=== PATIENT | female | born 1930 | race Caucasian/White ===

== ENCOUNTER 2017-11-05 12:32 | Emergency (ER) | payer MEDICARE ==
[~2017-11-05] VITALS: Ht 157.5 cm; Wt 59.0 kg
[~2017-11-05 12:32] MED LIST: ACET325 PO; ALPR.25 PO; ASPI81CH PO; ATOR20 PO; BISA10S PR; BISA5EC PO; Bactrim Ds Tab1 EACH PO; CELE100 PO; CEPH500 PO; CIPR500 PO; CLOP75 PO; DOCU100 PO; ERGO400 PO; FERR325 PO; FURO40 PO; FURO80 PO; GABA100 PO; GAVILAX17 GM PO; HYDACE5 PO; LEVFLO250 PO; LIDO5TP TOP; LISI20 PO; LISI5 PO; LORA.5 PO; METO50 PO; MULVITMIND PO; Micro-K10 MEQ PO; OXYC10ER PO; PANT40 PO; POTCHL10ER PO; Percocet 10-321 EACH PO; Percocet 5-3251 EACH PO; SENN187 PO; SERT100 PO; TRIA80TC TOP; WARF5 PO; ZOSYN IV
[2017-11-05] MEDS ORDERED: LEVFLO500 PO (14:37)
[2017-11-05] MEDS ORDERED: Bactrim Ds Tab1 EACH PO (14:37)
[2017-11-05 15:03] LABS: BASOPHILS ABSOLUTE AUTO 0.03 K/mm3 (0.00-0.23); BASOPHILS PERCENT AUTO 0 % (0-2); EOSINOPHILS ABSOLUTE AUTO 0.07 K/mm3 (0.00-0.68); EOSINOPHILS PERCENT AUTO 1 % (0-6); Hematocrit 29.8 % (33.0-51.0); Hemoglobin 9.6 g/dL (11.5-16.0); IMMATURE GRAN ABSOLUTE AUTO 0.09 K/mm3 (0.00-0.10); IMMATURE GRAN PERCENT AUTO 1 % (0-1); LYMPHOCYTES PERCENT AUTO 16 % (21-46); MONOCYTES ABSOLUTE AUTO 1.26 K/mm3 (0.16-1.47); MONOCYTES PERCENT AUTO 9 % (4-13); Mean Corpuscular HGB 28.9 pg (26.0-34.0); Mean Corpuscular HGB Conc 32.2 g/dL (31.5-36.5); Mean Corpuscular Volume 90 fL (80-100); Mean Platelet Volume 10.6 fL (9.1-12.4); NEUTROPHILS ABSOLUTE AUTO 10.35 K/mm3 (1.96-9.15); NEUTROPHILS PERCENT AUTO 74 % (41-73); Platelet Count 187 K/mm3 (150-400); RDW Coefficient Variation 14.6 % (11.7-14.2); RDW Standard Deviation 48.3 fL (35.1-46.3); Red Blood Cell Count 3.32 M/mm3 (3.80-5.20)
[2017-11-05 15:24] LABS: Anion Gap 8 mmol/L (6-16); Blood Urea Nitrogen 25 mg/dL (8-24); Bun/Creatinine Ratio 30.3 (12.0-20.0); CO2, Blood 29 mmol/L (21-32); Chloride, Blood 104 mmol/L (98-108); Creatinine, Blood 0.83 mg/dL (0.40-1.00); Glomerular Filtration Rate >60 (60-); Glucose, Blood 118 mg/dL (70-99); Potassium, Blood 4.6 mmol/L (3.5-5.5); Sodium, Blood 141 mmol/L (136-145)
[2017-11-05] MEDS ORDERED: Dazidox10 MG PO (15:56)
[2018-08-18] MEDS ORDERED: POTCHL20ER PO (07:27)
[2018-08-18] MEDS ORDERED: ASPI81CH PO (08:51)
[2018-08-18] MEDS ORDERED: SERT100 PO (08:51)
[2018-08-18] MEDS ORDERED: DOXY100 PO (08:56)
== END 2017-11-05 19:13 | disposition home or self-care (01) ==
LOC: ER 12:32
PROVIDERS: Nurse Practitioner Family
DX: L97.329 Non-pressure chronic ulcer of left ankle with unspecified severity (principal); L97.319 Non-pressure chronic ulcer of right ankle with unspecified severity; L97.529 Non-pressure chronic ulcer of other part of left foot with unspecified severity; L97.519 Non-pressure chronic ulcer of other part of right foot with unspecified severity; Z79.899 Other long term (current) drug therapy; Z79.82 Long term (current) use of aspirin; I10 Essential (primary) hypertension; I25.10 Atherosclerotic heart disease of native coronary artery without angina pectoris; Z87.891 Personal history of nicotine dependence
CPT/HCPCS: 80048; 85025; 87070; 87075; 87077; 87147; 87186; 87205; 99283

== ENCOUNTER → 2017-12-16 | Outpatient (CLI) | payer MEDICARE ==
[~2017-12-16] MED LIST changes: +DOXY100 PO; +Dazidox10 MG PO; +LEVFLO500 PO; +POTCHL20ER PO
== END | disposition home or self-care (01) ==
LOC: LAB 15:16
DX: L03.119 Cellulitis of unspecified part of limb (principal)
CPT/HCPCS: 87070; 87077; 87147; 87186; 87205

== ENCOUNTER 2017-12-19 00:10 | Day surgery (SDC) | payer MEDICARE ==
[~2017-12-19 00:10] MED LIST changes: -DOXY100 PO; -POTCHL20ER PO
[2018-08-18] MEDS ORDERED: POTCHL20ER PO (07:27)
[2018-08-18] MEDS ORDERED: SERT100 PO (08:51)
[2018-08-18] MEDS ORDERED: ASPI81CH PO (08:51)
[2018-08-18] MEDS ORDERED: DOXY100 PO (08:56)
== END 2017-12-19 22:49 | disposition home or self-care (01) ==
LOC: WOUND 00:10
DX: Z48.00 Encounter for change or removal of nonsurgical wound dressing (principal); L97.919 Non-pressure chronic ulcer of unspecified part of right lower leg with unspecified severity; L03.119 Cellulitis of unspecified part of limb
CPT/HCPCS: G0463

== ENCOUNTER 2017-12-25 11:00 | Day surgery (SDC) | payer MEDICARE ==
[2018-08-18] MEDS ORDERED: POTCHL20ER PO (07:27)
[2018-08-18] MEDS ORDERED: ASPI81CH PO (08:51)
[2018-08-18] MEDS ORDERED: SERT100 PO (08:51)
[2018-08-18] MEDS ORDERED: DOXY100 PO (08:56)
== END 2017-12-25 22:36 | disposition home or self-care (01) ==
LOC: WOUND 11:00
DX: Z48.00 Encounter for change or removal of nonsurgical wound dressing (principal); L03.119 Cellulitis of unspecified part of limb
CPT/HCPCS: G0463

== ENCOUNTER 2018-01-15 00:48 | Day surgery (SDC) | payer MEDICARE | END 2018-01-15 22:52 | disposition home or self-care (01) | LOC: WOUND 00:48 | PROC: 2W1RX6Z Compression of Left Lower Leg using Pressure Dressing (ICD-10-PCS; principal; 2018-01-15) | PROC: 2W1QX6Z Compression of Right Lower Leg using Pressure Dressing (ICD-10-PCS; principal; 2018-01-15) | DX: L97.219 Non-pressure chronic ulcer of right calf with unspecified severity (principal); L97.829 Non-pressure chronic ulcer of other part of left lower leg with unspecified severity; A49.02 Methicillin resistant Staphylococcus aureus infection, unspecified site; L03.119 Cellulitis of unspecified part of limb | CPT/HCPCS: G0463 ==

== ENCOUNTER 2018-01-20 11:00 | Day surgery (SDC) | payer MEDICARE | END 2018-01-20 22:44 | disposition home or self-care (01) | LOC: WOUND 11:00 | PROC: 2W1QX6Z Compression of Right Lower Leg using Pressure Dressing (ICD-10-PCS; principal; 2018-01-20) | DX: L97.819 Non-pressure chronic ulcer of other part of right lower leg with unspecified severity (principal); Z86.14 Personal history of Methicillin resistant Staphylococcus aureus infection; L03.119 Cellulitis of unspecified part of limb ==

== ENCOUNTER → 2018-02-06 | Outpatient (CLI) | payer MEDICARE | LOC: LAB SHORT 11:04 → LAB 11:04 | DX: L97.212 Non-pressure chronic ulcer of right calf with fat layer exposed (principal); I73.9 Peripheral vascular disease, unspecified | CPT/HCPCS: 87070; 87075; 87186; 87205 ==

== ENCOUNTER → 2018-03-24 | Outpatient (CLI) | payer MEDICARE ==
[2018-03-24 18:02] LABS: BASOPHILS ABSOLUTE AUTO 0.06 K/mm3 (0.00-0.23); BASOPHILS PERCENT AUTO 1 % (0-2); EOSINOPHILS ABSOLUTE AUTO 0.75 K/mm3 (0.00-0.68); EOSINOPHILS PERCENT AUTO 7 % (0-6); Hematocrit 35.6 % (33.0-51.0); Hemoglobin 11.6 g/dL (11.5-16.0); IMMATURE GRAN ABSOLUTE AUTO 0.05 K/mm3 (0.00-0.10); IMMATURE GRAN PERCENT AUTO 1 % (0-1); LYMPHOCYTES ABSOLUTE AUTO 2.11 K/mm3 (0.84-5.20); LYMPHOCYTES PERCENT AUTO 20 % (21-46); MONOCYTES ABSOLUTE AUTO 0.74 K/mm3 (0.16-1.47); MONOCYTES PERCENT AUTO 7 % (4-13); Mean Corpuscular HGB 29.7 pg (26.0-34.0); Mean Corpuscular HGB Conc 32.6 g/dL (31.5-36.5); Mean Corpuscular Volume 91 fL (80-100); Mean Platelet Volume 9.5 fL (9.1-12.4); NEUTROPHILS ABSOLUTE AUTO 6.82 K/mm3 (1.96-9.15); NEUTROPHILS PERCENT AUTO 65 % (41-73); Platelet Count 204 K/mm3 (150-400); RDW Coefficient Variation 14.1 % (11.7-14.2); Red Blood Cell Count 3.91 M/mm3 (3.80-5.20); White Blood Cell Count 10.53 K/mm3 (4.00-11.30)
[2018-03-24 18:18] LABS: Albumin, Blood 3.4 g/dL (3.4-5.0); Albumin/Globulin Ratio 0.8 (0.8-1.8); Bilirubin, Total 0.3 mg/dL (0.1-1.0); Bun/Creatinine Ratio 27.6 (12.0-20.0); Calcium, Blood 8.9 mg/dL (8.5-10.1); Creatinine, Blood 0.94 mg/dL (0.40-1.00); Globulin, Blood 4.3 g/dL (2.2-4.0); Total Protein, Blood 7.7 g/dL (6.4-8.2)
== END ==
LOC: LAB SHORT 17:52 → LAB 17:52
DX: L97.212 Non-pressure chronic ulcer of right calf with fat layer exposed (principal); I87.2 Venous insufficiency (chronic) (peripheral); J44.9 Chronic obstructive pulmonary disease, unspecified; I73.9 Peripheral vascular disease, unspecified
CPT/HCPCS: 80053; 85025; 85651; 87070; 87205

== ENCOUNTER 2018-10-06 00:09 | Day surgery (SDC) | payer MEDICARE ==
[~2018-10-06 00:09] MED LIST changes: +DOXY100 PO; +POTCHL20ER PO
== END 2018-10-06 22:39 | disposition home or self-care (01) ==
LOC: WOUND 00:09
DX: L97.212 Non-pressure chronic ulcer of right calf with fat layer exposed (principal); I70.232 Atherosclerosis of native arteries of right leg with ulceration of calf; I87.2 Venous insufficiency (chronic) (peripheral); L97.512 Non-pressure chronic ulcer of other part of right foot with fat layer exposed
CPT/HCPCS: 87070; 87075; 87077; 87186; 87205; G0463

== ENCOUNTER → 2018-11-30 | Outpatient (CLI) | payer MEDICARE ==
[~2018-11-30] MED LIST changes: +**INCOMPLETE MED REC; +Aspirin EC81 MG PO; +Oxycodone-Apap1 EAC3 PO; +SERT25 PO
== END | disposition home or self-care (01) ==
LOC: LAB 11:45 → LAB SHORT 11:45
DX: I87.2 Venous insufficiency (chronic) (peripheral) (principal); I73.9 Peripheral vascular disease, unspecified; L97.511 Non-pressure chronic ulcer of other part of right foot limited to breakdown of skin; L97.212 Non-pressure chronic ulcer of right calf with fat layer exposed; B95.61 Methicillin susceptible Staphylococcus aureus infection as the cause of diseases classified elsewhere
CPT/HCPCS: 87070; 87077; 87147; 87186; 87205

== ENCOUNTER 2018-12-01 12:10 | Inpatient (IN) | payer MEDICARE ==
[~2018-12-01] VITALS: Ht 157.5 cm; Wt 66.1 kg
[~2018-12-01 12:10] MED LIST changes: -**INCOMPLETE MED REC; -ATOR20 PO; -Aspirin EC81 MG PO; -CLOP75 PO; -FURO40 PO; -GABA100 PO; -METO50 PO; -Oxycodone-Apap1 EAC3 PO; -POTCHL20ER PO; -SERT25 PO
[2018-12-01 13:21] LABS: BASOPHILS ABSOLUTE AUTO 0.06 K/mm3 (0.00-0.23); BASOPHILS PERCENT AUTO 0 % (0-2); EOSINOPHILS ABSOLUTE AUTO 0.15 K/mm3 (0.00-0.68); EOSINOPHILS PERCENT AUTO 1 % (0-6); Hematocrit 34.7 % (33.0-51.0); IMMATURE GRAN ABSOLUTE AUTO 0.06 K/mm3 (0.00-0.10); IMMATURE GRAN PERCENT AUTO 0 % (0-1); LYMPHOCYTES ABSOLUTE AUTO 1.94 K/mm3 (0.84-5.20); LYMPHOCYTES PERCENT AUTO 13 % (21-46); MONOCYTES ABSOLUTE AUTO 1.01 K/mm3 (0.16-1.47); MONOCYTES PERCENT AUTO 7 % (4-13); Mean Corpuscular HGB 28.3 pg (26.0-34.0); Mean Corpuscular HGB Conc 31.7 g/dL (31.5-36.5); Mean Corpuscular Volume 89 fL (80-100); Mean Platelet Volume 9.7 fL (9.1-12.4); NEUTROPHILS ABSOLUTE AUTO 11.44 K/mm3 (1.96-9.15); NEUTROPHILS PERCENT AUTO 78 % (41-73); Platelet Count 242 K/mm3 (150-400); RDW Coefficient Variation 14.4 % (11.7-14.2); RDW Standard Deviation 46.1 fL (35.1-46.3); Red Blood Cell Count 3.89 M/mm3 (3.80-5.20); White Blood Cell Count 14.66 K/mm3 (4.00-11.30)
[2018-12-01 13:35] LABS: Alanine Aminotransfer (ALT/SGP 13 U/L (12-78); Albumin/Globulin Ratio 0.7 (0.8-1.8); Alk Phos 111 U/L (50-136); Anion Gap 7 mmol/L (6-16); Aspartate Aminotrans (AST/SGOT 14 U/L (12-37); Bilirubin, Total 0.4 mg/dL (0.1-1.0); Blood Urea Nitrogen 19 mg/dL (8-24); Bun/Creatinine Ratio 22.7 (12.0-20.0); CO2, Blood 30 mmol/L (21-32); Calcium, Blood 8.9 mg/dL (8.5-10.1); Chloride, Blood 104 mmol/L (98-108); Creatinine, Blood 0.84 mg/dL (0.40-1.00); Globulin, Blood 4.5 g/dL (2.2-4.0); Glomerular Filtration Rate >60 (60-); Glucose, Blood 140 mg/dL (70-99); Potassium, Blood 4.1 mmol/L (3.5-5.5); Sodium, Blood 141 mmol/L (136-145); Total Protein, Blood 7.5 g/dL (6.4-8.2)
[2018-12-01] MEDS ORDERED: **INCOMPLETE MED REC (15:33)
[2018-12-01] MEDS ORDERED: ATOR20 PO (15:40)
[2018-12-01] MEDS ORDERED: Aspirin EC81 MG PO (15:41)
[2018-12-01] MEDS ORDERED: CLOP75 PO (15:42)
[2018-12-01] MEDS ORDERED: FURO40 PO (15:43)
[2018-12-01] MEDS ORDERED: GABA100 PO (15:44)
[2018-12-01] MEDS ORDERED: METO50 PO (15:44)
[2018-12-01] MEDS ORDERED: POTCHL20ER PO (15:46)
[2018-12-01] MEDS ORDERED: Oxycodone-Apap1 EAC3 PO (15:46)
[2018-12-01] MEDS ORDERED: LORA.5 PO (16:04)
[2018-12-01] MEDS ORDERED: SERT25 PO (17:42)
--- NOTE | 2018-12-01 19:31 | NUR ---
SHIFT SUMMARY ED ADMIT THIS AFTERNOON. PATIENT DENIED NAUSEA OR SHORTNESS OF BREATH. REQUESTS PAIN MEDICATION BE GIVEN AT BEDTIME. WOUND CARE GIVEN AND PICTURES IN CHART. REPORT GIVEN TO NICO RN.
--- NOTE | 2018-12-02 05:48 | NUR ---
SHIFT SUMMARY PT PLEASANT AND COOPERATIVE. DRESSINGS TO RLE CLEAN, DRY, AND INTACT. PLACED BY DAY RN JUST BEFORE SHIFT CHANGE. PT PAINFUL IN R LEG, MEDICATED X 1 W/ PERCOCET PER PT REQUEST. PT AMBULATED W/ 1 ASSIST TO BSC. STEADY BUT SLOW AND PAINFUL WITH MOVEMENT. PT HAD NOT VOIDED AT ALL THIS EVENING, BLADDER SCAN READ IN THE 400'S. ENCOURAGED PT UP TO BSC TO VOID. PT VOIDED 400 ML. VSS. PT RESTING IN BED. NO ACUTE CHANGES.
--- NOTE | 2018-12-02 08:02 | NUR ---
pt laying in bed watching tv, a/ox3, pleasant and cooperative with care, follows commands well, lungs are clear t/o, resp even and unlabored, no cough noted, hrr, valve noted, 2+ edema noted to right foot that is wrapped in a dressing for a wound. this dressing was placed yesterday, will not disturb it at this point, iv site is clear and patent, to rac, field start, btx4, abd round soft nontender, voids without diff, skin has wound to right le, and coccyx, dressings in place, jyothi, uses walker to ambulate, but is painful for her, reina, call light in reach.
--- NOTE | 2018-12-02 12:03 | NUR ---
pt had a bedbath, oral care done, linen changes, pt very happy with this, she feels better. no changes this shift. call light in reach.
[2018-12-02 14:21] LABS: Vancomycin, Trough 6.8 ug/mL (5.0-10.0)
--- NOTE | 2018-12-02 15:51 | NUR ---
ASSUMED CARE/PATIENT TRANSFERED TO [facility] ASSUMED CARE OF PATIENT AFTER LUNCH. DR. ALEMAN CONSULTED ON PATIENT. PATIENT TO GO TO [facility] FOR ANGIOGRAM. PATIENT TRANSPORTED TO [facility]. REPORT WILL BE CALLED TO VACUUM APPLICATOR OPERATOR WHEN ROOM ASSIGNMENT IS GIVEN.
--- NOTE | 2018-12-02 17:15 | NUR ---
NURSING SUMMARY RECEIVED PT FROM [facility] WITH LEFT ANGIOGRAM PUNCTURE SITE, WITH TEGADERM IN PLACE, SCANT RED DRAINAGE. PT INSTRUCTED RE: LAYING FLAT FOR ABOUT 1 HOUR OR SO AND WE CAN START SITTING HER UP HIGHER IN BED, PROVIDED NO BLEEDING OR HEMATOMA AT PUNCTURE SITE. INSTRUCTED RE: BEDREST THIS EVENING. PT HAD BALLOONING INTERVENTIONS TO THE RIGHT SFA AND PROXIMAL AT. NSR ON MONITOR, HR 71, VSS. LUNGS CLEAR, 2L O2 NC, SATS 99%. RIGHT LOWER LEG WITH GUAZE AND GINO WRAP DRESSING PLACE. ASSISTED PT ONTO A BEDPAN FOR VOID OF 350 CC CLEAR YELLOW URINE, PLACED AN ATTENDS DUE TO PT STATING SHE IS INCONTINENT AT TIMES. ABDOMEN DISTENDED, DIRM, DENIES DISCOMFORT. DENIES PAIN AT THIS TIME. RIGHT AC IV INFUSING VANCOCIN, STARTED LATE, MEDICATION WAS BROUGHT WITH PT FROM THE HEART CENTER.
--- NOTE | 2018-12-02 19:13 | NUR ---
NURSING SUMMARY LEFT GROIN SITE OOZING BLOOD, HELD PRESSURE FOR 20 MINUTES, PROVIDED BEDSIDE REPORT TO DAPHNE. PT C/O LEFT HIP PAIN WHILE HOLDING PRESSURE AND STARTED C/O RIGHT HIP/ABDOMINAL PAIN, NOTED ABDOMEN DISTENDED, TENDER TO THE TOUCH, NO S/S OF BLEEDING OR HEMATOMA. REPOSITIONED PT TO LEFT SIDE. YAZMIN SERNA, TO ASSUME CARE OF PT.
--- NOTE | 2018-12-02 19:49 | NUR ---
ASSESSMENT ASSUMED CARE OF PT. REPORT RECEIVED FROM UNIQUE AT BEDSIDE. PT AWAKE LYING SUPINE IN BED. LOG ROLLED TO LEFT SIDE TO RELEAVE PRESSURE. PT C/O PAIN TO RIGHT HIP/GROIN AND RLQ ABD /. PT MED WITH PERCOCET. PT THAN C/O NAUSEA, MED WITH ZOFRAN. LUNGS CLEAR BUT DECREASED IN THE BASES. PT ON 2 LITERS O2 VIA NC. RESP EVEN AND NONLABORED. PT DENIES SOB OR COUGH. HEART RATE IRREGULAR BUT SINUS. DENIES CHEST PAIN OR PRESSURE. BT+ ABD TENDER TO RLQ. IV RIGHT AC WITH NS INFUSING SITE CLEAR. ATTENDS CD&I. LEFT GROIN STABLE SOFT TO PALP. LEFT PEDAL PULSES 1+. RIGHT FOOT WITH DRSG INTACT. PT ABLE TO MOVE RIGHT TOES WITHOUT DIFFICULTY. DENIES NUMBNESS OR PAIN TO LOWER EXT. CALL TO DR CEDILLO REGARDING PAIN TO RIGHT HIP/GROIN AND RLQ ABD. REPORT GIVEN. DR CEDILLO THINKS IT IS RELATED TO LAYING ON A HARD FLAT SURFACE FOR A LONG TIME AND NOT RELATED TO THE PROCEDURE. INFORMED PT ABOUT CALL TO DR CEDILLO AND WHAT HE HAD TO SAY.
--- NOTE | 2018-12-02 20:47 | NUR ---
HYPOTENSION CALL TO DR CEDILLO AND HOSPITALIST REGARDING HYPOTENSION AND PELVIC PAIN. PT TO GO FOR STAT CT ABD AND PELVIS. NS BOLUS STARTED
[2018-12-02 21:35] LABS: Hematocrit 28.6 % (33.0-51.0); Hemoglobin 8.8 g/dL (11.5-16.0); Mean Corpuscular HGB 28.1 pg (26.0-34.0); Mean Corpuscular HGB Conc 30.8 g/dL (31.5-36.5); Mean Corpuscular Volume 91 fL (80-100); Mean Platelet Volume 9.5 fL (9.1-12.4); Platelet Count 208 K/mm3 (150-400); RDW Coefficient Variation 14.3 % (11.7-14.2); RDW Standard Deviation 47.6 fL (35.1-46.3); Red Blood Cell Count 3.13 M/mm3 (3.80-5.20); White Blood Cell Count 20.52 K/mm3 (4.00-11.30)
--- NOTE | 2018-12-02 21:36 | NUR ---
CT/ FLUID BOLUS PT TAKEN TO CT VIA BED. BACK FROM CT. 22G IV PLACED TO RIGHT WRIST WITH LAB DRAW. PT LOG ROLLED TO RIGHT. LEFT GROIN STABLE. HOSPITALIST YVONNE DINH REVIEWING CHART.
--- NOTE | 2018-12-02 21:44 | NUR ---
BP 100/50 MAP 75, HEART RATE 71. PT SLEEPING. SPO2 100% ON 2 LITERS O2 VIA NC. TURNED O2 OFF AND PLACED PT ON ROOMAIR. SPO2 97%. RESP EVEN AND NONLABORED.
[2018-12-02 21:50] LABS: Bun/Creatinine Ratio 21.1 (12.0-20.0); Calcium, Blood 7.7 mg/dL (8.5-10.1); Creatinine, Blood 0.99 mg/dL (0.40-1.00); Potassium, Blood 4.4 mmol/L (3.5-5.5)
--- NOTE | 2018-12-02 21:53 | NUR ---
SPO2 SPO2 87% ON ROOMAIR. PT PLACED ON 1 LITER O2, SPO2 UP TO 94-95%
--- NOTE | 2018-12-02 22:19 | NUR ---
CALL TO DR CEDILLO CT REPORT CALLED TO DR CEDILLO. INFORMED DR CEDILLO THAT PT DID RECEIVE ASA AND PLAVIX THIS AM AT 0744. STOPPED ALL BLOOD THINNERS. RECEIVED ORDER FOR 2 UNITS OF PRBC. REPORT GIVEN TO HOSPITALIST YVONNE.
--- NOTE | 2018-12-02 22:49 | NUR ---
JUDIE ALMONTE REPORT GIVEN TO DR MCNEIL REGARDING THE CT AND DR CEDLILO'S ORDERS.
--- NOTE | 2018-12-03 01:37 | NUR ---
HYPOTENSION NOTIFIED DR JASON REGARDING BP 86/36 MAP 48 HEART RATE 61. PT SLEEPING AWAKENS EASILY. A&O ANSWERING QUESTIONS APPROP. FIRST UNIT PRBC INFUSING. CONT TO MONITOR, NOTIFY DR PARRISH IF SBP BELOW 80
--- NOTE | 2018-12-03 03:35 | NUR ---
TRANSFUSION SECOND UNIT OF PRBC STARTED. LUNGS CLEAR ON 1 LITER O2 VIA NC. PT RESTING QUIETLY.
--- NOTE | 2018-12-03 06:20 | NUR ---
SHIFT SUMMARY PT RESTING QUIETLY. LEFT GROIN STABLE. PT TAKEN TO CT LAST NIGHT TO R/O BLEED. PT DEVELOPED HYPOTENSION AND 2 UNITS PRBC WHERE GIVEN. BP IMPROVED WITH BLOOD TRANSFUSION. PT TURNED SIDE TO SIDE TO KEEP OFF BOTTOM. INCONT OF URINE ONCE AND ATTENDS CHANGED. RIGHT FOOT DRSG INTACT. PT MED WITH PERCOCET ONCE FOR PAIN TO RIGHT HIP/GROIN/RLQ ABD WITH GOOD RESULTS. PT REPORTED PAIN OFF AND ON TO RIGHT FOOT DUE TO REPERFUSION. REPORT TO ON COMING NURSE
[2018-12-03 07:14] LABS: Hematocrit 32.3 % (33.0-51.0); Hemoglobin 10.4 g/dL (11.5-16.0); Mean Corpuscular HGB 28.8 pg (26.0-34.0); Mean Corpuscular HGB Conc 32.2 g/dL (31.5-36.5); Mean Corpuscular Volume 90 fL (80-100); Mean Platelet Volume 9.4 fL (9.1-12.4); Platelet Count 181 K/mm3 (150-400); RDW Coefficient Variation 14.6 % (11.7-14.2); RDW Standard Deviation 47.8 fL (35.1-46.3); Red Blood Cell Count 3.61 M/mm3 (3.80-5.20); White Blood Cell Count 14.02 K/mm3 (4.00-11.30)
--- NOTE | 2018-12-03 07:20 | NUR ---
RECEIVED REPORT FROM YAZMIN SERNA, AND ASSUMED CARE OF PT.
[2018-12-03 07:27] LABS: Bun/Creatinine Ratio 21.5 (12.0-20.0); Creatinine, Blood 1.07 mg/dL (0.40-1.00); Potassium, Blood 4.2 mmol/L (3.5-5.5)
--- NOTE | 2018-12-03 07:50 | NUR ---
DR. ROSAS AT BEDSIDE FOR EVALUATION.
--- NOTE | 2018-12-03 08:10 | NUR ---
ULTRASOUND AT BEDSIDE. HELD BREAKFAST.
--- NOTE | 2018-12-03 08:14 | NUR ---
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
--- NOTE | 2018-12-03 09:22 | NUR ---
DR. SIMMS AT BEDSIDE FOR EVALUATION.
--- NOTE | 2018-12-03 09:35 | NUR ---
DR. SIMMS AT BEDSIDE, REMOVED RIGHT LOWER LEG DRESSING TO ASSESS WOUNDS. WOUND ON TOP OF RIGHT FOOT AND RIGHT CALF, CLEAN, NO BLEEDING. WOUNDS APPEAR THE SAME THE PICTURES PREVIOUSLY TAKEN ON ADMISSION. CLEANED WOUNDS WITH WOUND WASH, APPLIED GUAZE ON WOUNDS AND WRAPPED WITH KERLIX AND GINO WRAP. C/O MILD PAIN DURING DRESSING CHANGE, NOT ENOUGH PAIN TO MEDICATE FOR PAIN.
[2018-12-03 12:33] LABS: Hematocrit 31.3 % (33.0-51.0); Hemoglobin 10.4 g/dL (11.5-16.0)
--- NOTE | 2018-12-03 12:37 | NUR ---
CHANGED DRESSING ON LEFT GROIN/ANGIOGRAM SITE. NOTED SMALL AMOUNT OF OLD BLOODY DRAINAGE THAT REMAINED THE SAME SIZE NOTED WITH FIRST ASSESSMENT THIS AM AT 0730. REMOVE DOLD TEGADER/CHG DRESSING, CLEANED SITE, ASSURED NO S/S OF BLEEDING OR HEMATOMA, APPLIED NEW TEGADERM DRESSING.
--- NOTE | 2018-12-03 13:23 | NUR ---
PARESH, PHYSICIAN FOREPART ROUNDER FROM DR. MOYA OFFICE, AT BEDSIDE FOR EVALUATION OF RIGHT LOWER LEG WOUNDS. RECOMMENDS DRESSING CHANGES EVERY OTHER DAY.
--- NOTE | 2018-12-03 15:43 | NUR ---
GAVE REPORT TO YAZMIN ZIMMERMAN, WHOM WILL ASSUME CARE OF PT.
--- NOTE | 2018-12-03 17:21 | NUR ---
SHIFT SUMMARY Assumed care of pt at 1530 from Anna ARCE. Pt on 2 LPM RI. States "I have never needed oxygen before". Pt unhappy about repeated blood draws. This RN educates pt of importance of serial H&H. Pt verbalizes understanding and allows phelbotomist to perform venipuncture. Bed in lowest position. Call light in reach. Will continue to monitor until care handoff and bedside report with oncoming RN.
[2018-12-03 17:29] LABS: Hematocrit 32.1 % (33.0-51.0); Hemoglobin 10.5 g/dL (11.5-16.0)
--- NOTE | 2018-12-03 21:18 | NUR ---
PT A+O, VSS, BP SLIGHTLY HYPOTENSIVE. WITH PAST FEW SHIFT HX OF HYPOTENSION, PT'S METOPROLOL NOT GIVEN. PT INFORMED OF TRANSFER TO ROOM 313. PT VERBALIZED UNHAPPINESS IN BEING MOVED AGAIN. PT SOMEWHAT CONSOLEABLE WITH EXPLANATION. CALLED ROOM 313 RN FOR REPORT WITH RN STATING WILL CALL BACK FOR REPORT WHEN ABLE. AIR LIAISON AND SPECIAL STAFF INFORMED.
--- NOTE | 2018-12-03 21:41 | NUR ---
PT NOW GOING TO ROOM 324. REPORT CALLED TO YULIYA ARCE. ALL QUESTIONS ANSWERED. SEMICONDUCTOR LAB TECHNICIAN NOTIFIED. WILL TRANSFER PT WHEN ABLE.
--- NOTE | 2018-12-03 21:58 | NUR ---
RECEIVED REPORT FROM TRY OUT PERSON, LACY. PT ARRIVED TO 324 VIA BED. PT WAS TRANSFERRED TO BED VIA SLIDER SHEET. A/O AND PLEASANT. RESP EVEN ON 1L VIA NC. RLE WRAPPED IN GINO WRAP. DRESSING CHANGED IN ICU. ELEVATED BLE ON PILLOW. PT MADE COMFORTABLE. CALL LIGHT PLACED WITHIN REACH. WILL MONITOR AND PROVIDE CARE T/O SHIFT.
--- NOTE | 2018-12-03 22:53 | NUR ---
PT TRANSFERRED TO MEDICAL FLOOR RM 324. THIS RN AGREES WITH SHIFT ASSESSMENT OF FEDERAL MEDIATOR.
--- NOTE | 2018-12-04 05:10 | NUR ---
NOC SHIFT SUMMARY THIS PT WAS A TRANSFER FROM ICU AFTER HAVING LOW BLOOD PRESSURE POST PROCEEDURE. SHE HAD BEEN STABILIZED AND BROUGHT BACK TO MED FLOOR. VSS. SHE HAS SLEPT THROUGH THIS NIGHT AND APPEARS IN NO ACUTE DISTRESS. WILL CONTINUE TO MONITOR.
[2018-12-04 05:20] LABS: Hematocrit 29.5 % (33.0-51.0); Hemoglobin 9.4 g/dL (11.5-16.0); Mean Corpuscular HGB 28.9 pg (26.0-34.0); Mean Corpuscular HGB Conc 31.9 g/dL (31.5-36.5); Mean Corpuscular Volume 91 fL (80-100); Mean Platelet Volume 9.4 fL (9.1-12.4); Platelet Count 165 K/mm3 (150-400); RDW Coefficient Variation 14.8 % (11.7-14.2); RDW Standard Deviation 49.5 fL (35.1-46.3); Red Blood Cell Count 3.25 M/mm3 (3.80-5.20); White Blood Cell Count 11.81 K/mm3 (4.00-11.30)
[2018-12-04 05:43] LABS: Bun/Creatinine Ratio 25.2 (12.0-20.0); Calcium, Blood 8.5 mg/dL (8.5-10.1); Creatinine, Blood 0.95 mg/dL (0.40-1.00); Potassium, Blood 4.2 mmol/L (3.5-5.5)
--- NOTE | 2018-12-04 09:44 | NUR ---
CALLED CARDIOLOGY OFFICE TO GET IN TOUCH WITH DR ALEMAN, HE DOES NOT WORK ON [place]. WAS GIVEN HIS PHONE NUMBER, PASSED THIS ON TO DR ROSAS. TRYING TO DC PT NEEDS ALL CLEAR FROM CARDIOLOGY.
[2018-12-04] MEDS ORDERED: DOXY100 PO (10:33)
--- NOTE | 2018-12-04 10:58 | NUR ---
DISCHARGE NOTE- PT DISCHARGING HOME. DISCHARGE PLANNING OFFERED TO SET UP FOLLOW UP APPOINTMENTS AT THE TIME OF DISCHARGE PT STATED NO HER CAREGIVER WILL DO ALL OF THAT. PT HAS NO C/O PAIN AT THIS TIME, TELE AND IV DC'D AND SENIOR BILLING CONSULTANT IS ASSISTING THE PT WITH DRESSING. CAREGIVER IS ENROUTE TO GOLD PLATER THE PT. PT WAS GIVEN VERBAL AND WRITTEN DISCHARGE INSTRUCTIONS AND ACKNOWLEDGED UNDERSTANDING OF THEM. PT WILL BE ESCORTED OUT VIA W/C BY STAFF WHEN CAREGIVER ARRIVES.
== END 2018-12-04 12:16 | disposition home or self-care (01) | DRG 853 ==
LOC: ER 12:10 → MEDS 12:11 → ER 15:52 → MEDS 16:42 → ICUW 12-02 17:22 → MEDS 12-03 10:16 → ICUW 12-03 13:42 → MEDS 12-03 21:58 → ENPENDDIS 12-04 10:00 → MEDS 12-04 12:16
PROVIDERS: Emergency Medicine; Nurse Practitioner Acute Care; ADMIT Internal Medicine
PROC: 30233N1 Transfusion of Nonautologous Red Blood Cells into Peripheral Vein, Percutaneous Approach (ICD-10-PCS; principal; 2018-12-03)
PROC: 047K3ZZ Dilation of Right Femoral Artery, Percutaneous Approach (ICD-10-PCS; 2018-12-03)
PROC: 047P3ZZ Dilation of Right Anterior Tibial Artery, Percutaneous Approach (ICD-10-PCS; 2018-12-03)
DX: A41.9 Sepsis, unspecified organism (principal); K66.1 Hemoperitoneum; L03.115 Cellulitis of right lower limb; L76.32 Postprocedural hematoma of skin and subcutaneous tissue following other procedure; Z79.01 Long term (current) use of anticoagulants; E78.5 Hyperlipidemia, unspecified; Z95.1 Presence of aortocoronary bypass graft; I25.10 Atherosclerotic heart disease of native coronary artery without angina pectoris; I35.0 Nonrheumatic aortic (valve) stenosis; I11.0 Hypertensive heart disease with heart failure; I50.9 Heart failure, unspecified; I73.9 Peripheral vascular disease, unspecified; M79.7 Fibromyalgia; S81.801A Unspecified open wound, right lower leg, initial encounter; Z86.14 Personal history of Methicillin resistant Staphylococcus aureus infection; Z95.2 Presence of prosthetic heart valve; M79.81 Nontraumatic hematoma of soft tissue; K80.50 Calculus of bile duct without cholangitis or cholecystitis without obstruction; I95.9 Hypotension, unspecified; Z87.891 Personal history of nicotine dependence
CPT/HCPCS: 36415; 36430; 37224; 37228; 37232; 71045; 73630; 74176; 75625; 75716; 75774; 76705; 80048; 80053; 80202; 83605; 85014; 85018; 85025; 85027; 85651; 86140; 86850; 86900; 86901; 86923; 87040; 96365; 96366; 99152; 99153; 99284-25; C1725; C1760; C1769; C1887; C1894; C2623; G0378; J0690; J1644; J1650; J2250; J2405; J3010; J3370; J7030; J7050; P9016; Q9967

== ENCOUNTER → 2019-01-01 | Outpatient (CLI) | payer MEDICARE ==
[~2019-01-01] MED LIST changes: +**INCOMPLETE MED REC; +ATOR20 PO; +Aspirin EC81 MG PO; +CLOP75 PO; +FURO40 PO; +GABA100 PO; +METO50 PO; +Oxycodone-Apap1 EAC3 PO; +POTCHL20ER PO; +SERT25 PO
[2019-01-01 13:49] LABS: Alanine Aminotransfer (ALT/SGP 15 U/L (12-78); Albumin, Blood 3.3 g/dL (3.4-5.0); Albumin/Globulin Ratio 0.7 (0.8-1.8); Alk Phos 117 U/L (50-136); Anion Gap 9 mmol/L (6-16); Aspartate Aminotrans (AST/SGOT 17 U/L (12-37); Bilirubin, Total 0.6 mg/dL (0.1-1.0); Blood Urea Nitrogen 17 mg/dL (8-24); Bun/Creatinine Ratio 23.8 (12.0-20.0); CO2, Blood 29 mmol/L (21-32); Calcium, Blood 9.4 mg/dL (8.5-10.1); Chloride, Blood 102 mmol/L (98-108); Creatinine, Blood 0.71 mg/dL (0.40-1.00); Globulin, Blood 4.8 g/dL (2.2-4.0); Glomerular Filtration Rate >60 (60-); Glucose, Blood 119 mg/dL (70-99); Potassium, Blood 4.5 mmol/L (3.5-5.5); Sodium, Blood 140 mmol/L (136-145); Total Protein, Blood 8.1 g/dL (6.4-8.2)
== END | disposition home or self-care (01) ==
LOC: LAB 13:03 → LAB SHORT 13:03
DX: E78.2 Mixed hyperlipidemia (principal); D64.9 Anemia, unspecified; I73.9 Peripheral vascular disease, unspecified
CPT/HCPCS: 80053

== ENCOUNTER → 2019-01-08 | Outpatient (CLI) | payer MEDICARE ==
[2019-01-08 12:30] LABS: BASOPHILS ABSOLUTE AUTO 0.06 K/mm3 (0.00-0.23); BASOPHILS PERCENT AUTO 1 % (0-2); EOSINOPHILS ABSOLUTE AUTO 0.73 K/mm3 (0.00-0.68); EOSINOPHILS PERCENT AUTO 6 % (0-6); Hematocrit 36.7 % (33.0-51.0); Hemoglobin 11.6 g/dL (11.5-16.0); IMMATURE GRAN ABSOLUTE AUTO 0.04 K/mm3 (0.00-0.10); IMMATURE GRAN PERCENT AUTO 0 % (0-1); LYMPHOCYTES PERCENT AUTO 20 % (21-46); MONOCYTES ABSOLUTE AUTO 0.76 K/mm3 (0.16-1.47); MONOCYTES PERCENT AUTO 6 % (4-13); Mean Corpuscular HGB 29.1 pg (26.0-34.0); Mean Corpuscular HGB Conc 31.6 g/dL (31.5-36.5); Mean Corpuscular Volume 92 fL (80-100); Mean Platelet Volume 9.7 fL (9.1-12.4); NEUTROPHILS ABSOLUTE AUTO 7.99 K/mm3 (1.96-9.15); NEUTROPHILS PERCENT AUTO 67 % (41-73); Platelet Count 232 K/mm3 (150-400); RDW Coefficient Variation 14.6 % (11.7-14.2); RDW Standard Deviation 49.8 fL (35.1-46.3); Red Blood Cell Count 3.99 M/mm3 (3.80-5.20); White Blood Cell Count 11.98 K/mm3 (4.00-11.30)
== END | disposition home or self-care (01) ==
LOC: LAB 12:13 → LAB SHORT 12:13
DX: E78.2 Mixed hyperlipidemia (principal); D64.9 Anemia, unspecified; I73.9 Peripheral vascular disease, unspecified
CPT/HCPCS: 85025; 85651

== ENCOUNTER → 2019-02-08 | Outpatient (CLI) | payer MEDICARE ==
[2019-02-08 15:04] LABS: International Normalized Ratio 0.94
== END | disposition home or self-care (01) ==
LOC: LAB 14:29 → LAB SHORT 14:29
PROVIDERS: Radiology Diagnostic Radiology
DX: I83.10 Varicose veins of unspecified lower extremity with inflammation (principal)
CPT/HCPCS: 85610

== ENCOUNTER 2019-02-09 06:58 | Day surgery (SDC) | payer MEDICARE ==
[~2019-02-09] VITALS: Ht 160 cm; Wt 140.0 kg
--- NOTE | 2019-02-09 09:10 | NUR ---
R LEG TLEFA PAD OVER ULCER, CURLEX WRAPPED UP LEG THEN WRAPPED WITH COBAN. DR. ALEMAN STATED NO NEED FOR STOCKING.
--- NOTE | 2019-02-09 09:58 | NUR ---
DISCHARGE PT REMAINED A&OX3 FOLLOWING PROCEDURE. PT DENIED ANY PAIN DURING RECOVERY. R LEG SITE REMAINS CDI-COVERED WITH TELPHA, CURLEX AND COBAN. IV DC'D WITH TIP IN TACT. DICHARGE PAPERWORK GONE OVER WITH PT AND CAREGIVER. PT AND CAREGIVER DEINED ANY QUESTIONS OR CONCERNS. PT WHEELED OUT BY CAREGIVER.
== END 2019-02-09 10:00 | disposition home or self-care (01) ==
LOC: MHTC 06:58
DX: I83.10 Varicose veins of unspecified lower extremity with inflammation (principal); I10 Essential (primary) hypertension; M79.7 Fibromyalgia; E78.5 Hyperlipidemia, unspecified; I73.9 Peripheral vascular disease, unspecified; Z88.1 Allergy status to other antibiotic agents; Z79.82 Long term (current) use of aspirin; Z79.899 Other long term (current) drug therapy; Z79.02 Long term (current) use of antithrombotics/antiplatelets
CPT/HCPCS: 36466; 36475; 99152; 99153; C1888; C1894; J1644; J2250; J3010; J7040

== ENCOUNTER → 2019-02-25 | Outpatient (CLI) | payer MEDICARE | END | disposition home or self-care (01) | LOC: LAB SHORT 13:30 → LAB 13:30 | DX: S91.309D Unspecified open wound, unspecified foot, subsequent encounter (principal) | CPT/HCPCS: 87070; 87075; 87077; 87147; 87186; 87205 ==

== ENCOUNTER → 2019-03-23 | Outpatient (CLI) | payer MEDICARE ==
[2019-03-23 13:28] LABS: BASOPHILS ABSOLUTE AUTO 0.04 K/mm3 (0.00-0.23); BASOPHILS PERCENT AUTO 0 % (0-2); EOSINOPHILS ABSOLUTE AUTO 0.45 K/mm3 (0.00-0.68); EOSINOPHILS PERCENT AUTO 4 % (0-6); Hematocrit 33.8 % (33.0-51.0); Hemoglobin 10.8 g/dL (11.5-16.0); IMMATURE GRAN ABSOLUTE AUTO 0.04 K/mm3 (0.00-0.10); IMMATURE GRAN PERCENT AUTO 0 % (0-1); LYMPHOCYTES ABSOLUTE AUTO 2.12 K/mm3 (0.84-5.20); LYMPHOCYTES PERCENT AUTO 17 % (21-46); MONOCYTES ABSOLUTE AUTO 0.83 K/mm3 (0.16-1.47); MONOCYTES PERCENT AUTO 7 % (4-13); Mean Corpuscular HGB 28.9 pg (26.0-34.0); Mean Corpuscular Volume 90 fL (80-100); Mean Platelet Volume 10.1 fL (9.1-12.4); NEUTROPHILS ABSOLUTE AUTO 9.18 K/mm3 (1.96-9.15); NEUTROPHILS PERCENT AUTO 73 % (41-73); Platelet Count 202 K/mm3 (150-400); RDW Coefficient Variation 14.6 % (11.7-14.2); RDW Standard Deviation 48.5 fL (35.1-46.3); Red Blood Cell Count 3.74 M/mm3 (3.80-5.20); White Blood Cell Count 12.66 K/mm3 (4.00-11.30)
[2019-03-23 13:42] LABS: International Normalized Ratio 0.95; Prothrombin Time Results 10.1 Sec (9.7-11.5)
[2019-03-23 13:49] LABS: Anion Gap 8 mmol/L (6-16); Blood Urea Nitrogen 22 mg/dL (8-24); Bun/Creatinine Ratio 27.7 (12.0-20.0); CO2, Blood 28 mmol/L (21-32); Chloride, Blood 103 mmol/L (98-108); Creatinine, Blood 0.79 mg/dL (0.40-1.00); Glomerular Filtration Rate >60 (60-); Glucose, Blood 126 mg/dL (70-99); Potassium, Blood 4.1 mmol/L (3.5-5.5); Sodium, Blood 139 mmol/L (136-145)
== END | disposition home or self-care (01) ==
LOC: LAB 13:18 → LAB SHORT 13:18
PROVIDERS: Radiology Diagnostic Radiology
DX: D64.9 Anemia, unspecified (principal); I73.9 Peripheral vascular disease, unspecified
CPT/HCPCS: 80048; 85025; 85610

== ENCOUNTER 2019-03-24 06:54 | Day surgery (SDC) | payer MEDICARE ==
[~2019-03-24] VITALS: Ht 160 cm; Wt 66.0 kg
--- NOTE | 2019-03-24 11:52 | NUR ---
LATE ENTRY: 0745 Pt arrived with right foot in dressing yellow sanguinous fluid on drg. Removed slightly prior to entry level lab technician. Yellow flaky skin with seeping yellow fluid noted. Pt postive for MRSA.
--- NOTE | 2019-03-24 12:12 | NUR ---
ASSUMED CARE AT THIS TIME PT. RESTING QUIETLY IN BED, REMAINS DROWSY POST PROCEDURE, OPENS EYES TO VERBAL STIMULI. VSS UPON ARRIVAL. ANTEGRADE SHEATH REMOVED PRIOR TO ARRIVAL BY HEART CENTER STAFF. GROIN SITE STABLE UPON ARRIVAL JUWAN DRESSING IN PLACE WITH SMALL AMOUNT DRAINAGE OUTLINED BY HEART CENTER STAFF. SITE SOFT AND NO HEMATOMA NOTED AT THIS TIME. PT. CAREGIVER AT BEDSIDE. UPDATED ON CONDITION. PT REMAINS IN SUPINE POSITION. PT. HAS WOUND TO RIGHT FOOT, THAT WAS COVERED BY HEART CENTER STAFF DURING PROCEDURE. WILL CLEAN AND RE BANDAGE. NADN AT THIS TIME. CALL LIGHT IN REACH. ATTENDS IN PLACE, CDI.
--- NOTE | 2019-03-24 13:11 | NUR ---
WOUND CARE COMPLETED NEW DRESSINGS PLACED TO RIGHT FOOT AND CALF BUTTOCKS DRESSINGS CLEAN AND INTACT TO WOUNDS, MEPILEX PLACED TO COCCYX, ECCHYMOSIS NOTED TO BUTTOCKS. PER PT. CAREGIVER WOUNDS UNCHANGED. HAZEL CARE DONE AND NEW ATTENDS IN PLACE.
--- NOTE | 2019-03-24 15:17 | NUR ---
CALL TO DR. ALEMAN FOR MEDICATION ORDERS. PT. EATING FINGER FOODS AND PROVIDED WITH BEVERAGES PER REQUEST.
--- NOTE | 2019-03-24 18:06 | NUR ---
SHIFT SUMMARY PT. ALERT AND ORIENTED. PT. CURRENTLY ON RA. REMAINS EXTENDED RECOVERY WITH PLANS TO D/C HOME IN THE AM. PT. VSS T/O SHIFT. ACCESS SITE TO RIGHT GROIN REMAINS UNCHANGED. PT. MED ONCE FOR PAIN TO RIGHT LEG. DRESSINGS CHANGED TO LEG, FOOT AND BUTTOCKS THIS SHIFT. CALL LIGHT IN REACH.
--- NOTE | 2019-03-24 20:31 | NUR ---
START OF SHIFT: REPORT FROM SARA ARCE. PT A+O PLEASANT WITH NO C/O EXCEPT NEEDING HER HEELS ELEVATED. PT'S RIGHT GROIN SITE ASSESSED AND IS WITH NO NEW CHANGES PER SARA ARCE. DRESSING INTACT WITH SLIGHT OLD DRAINAGE AND NO SWELLING OR BRUISING NOTED AT GROIN SITE. PT'S RIGHT FOOT WITH DRESSING CDI AND CAP REFILL <2. PT USING CALL LIGHT AND BED CONTROL APPROPRIATELY. WILL CONTINUE TO MONITOR AND PROVIDE CARE AND COMFORT PRN.
--- NOTE | 2019-03-24 22:41 | NUR ---
PT REPOSITIONED, ATTENDS CHANGED, DENTURES PLACED IN CUP, PT GIVEN FRESH ICE WATER, VSS. CALL LIGHT IN HAND.
--- NOTE | 2019-03-25 02:05 | NUR ---
SATS 89%: PT SPOT CHECKED AND VITALS TAKEN. PT AT START OF SHIFT REFUSED TO WEAR OXYMETER. PT SLEEPING WITH SATS 89%. PT REFUSED TO WEAR N/C STATING, "EVERY TIME I COME HERE THEY TRY TO GET ME TO WEAR THAT AND THEN I GO HOME". PT STATED, "NO" TO WEARING OXYGEN (N/C). OTHERWISE, SKIN PWD.
--- NOTE | 2019-03-25 07:30 | NUR ---
ASSUMED CARE PT. ALERT AND ORIENTED THIS AM. PT ANXIOUS TO GET HOME TODAY. AWAITING HEDDLER TIER. REPORTS PAIN TO RIGHT FOOT AND MED FOR PAIN PER DRLesley ORDER. RIGHT GROIN SITE REMAINS STABLE, AND UNCHANGED. VSS THIS AM.CALL LIGHT IN REACH
--- NOTE | 2019-03-25 09:26 | NUR ---
DR. ALEMAN IN TO SEE PT. PT TO BE DISCHARGED HOME
--- NOTE | 2019-03-25 11:36 | NUR ---
PT DISCHARGED AT THIS TIME. PT ABLE TO STAND AND TRANSFER TO WHEEL CHAIR WITH WALKER. DISCHARGE INSTRUCTIONS REVIEWED WITH PT AND POLICY ADVISOR. PT CAREGIVER TO TAKE PT HOME. ASSISTED OUT TO CAR BY REAL ESTATE LISTING CONSULTANT. PT. VSS UPON DISCHARGE.
== END 2019-03-25 11:35 | disposition home or self-care (01) ==
LOC: MHTC 06:54 → ICUE 11:26 → MHTC 03-25 11:35
DX: I70.239 Atherosclerosis of native arteries of right leg with ulceration of unspecified site (principal); L97.919 Non-pressure chronic ulcer of unspecified part of right lower leg with unspecified severity; Z79.82 Long term (current) use of aspirin; Z79.899 Other long term (current) drug therapy
CPT/HCPCS: 85347; 99152; 99153; C1725; C1769; C1887; C1894; J1644; J2250; J3010; J7030; Q9967

== ENCOUNTER 2019-04-21 12:58 | Inpatient (IN) | payer MEDICARE ==
[~2019-04-21] VITALS: Ht 160 cm; Wt 59.7 kg
[~2019-04-21 12:58] MED LIST changes: -Oxycodone-Apap1 EAC3 PO; -SERT25 PO
[2019-04-21 13:49] LABS: BASOPHILS ABSOLUTE AUTO 0.02 K/mm3 (0.00-0.23); BASOPHILS PERCENT AUTO 0 % (0-2); EOSINOPHILS PERCENT AUTO 0 % (0-6); Hematocrit 32.3 % (33.0-51.0); Hemoglobin 10.3 g/dL (11.5-16.0); IMMATURE GRAN ABSOLUTE AUTO 0.08 K/mm3 (0.00-0.10); IMMATURE GRAN PERCENT AUTO 0 % (0-1); LYMPHOCYTES ABSOLUTE AUTO 1.04 K/mm3 (0.84-5.20); LYMPHOCYTES PERCENT AUTO 6 % (21-46); MONOCYTES PERCENT AUTO 6 % (4-13); Mean Corpuscular HGB 28.7 pg (26.0-34.0); Mean Corpuscular HGB Conc 31.9 g/dL (31.5-36.5); Mean Corpuscular Volume 90 fL (80-100); Mean Platelet Volume 9.9 fL (9.1-12.4); NEUTROPHILS ABSOLUTE AUTO 16.53 K/mm3 (1.96-9.15); NEUTROPHILS PERCENT AUTO 88 % (41-73); Platelet Count 183 K/mm3 (150-400); RDW Coefficient Variation 14.6 % (11.7-14.2); RDW Standard Deviation 48.5 fL (35.1-46.3); Red Blood Cell Count 3.59 M/mm3 (3.80-5.20); White Blood Cell Count 18.77 K/mm3 (4.00-11.30)
[2019-04-21 14:05] LABS: Alanine Aminotransfer (ALT/SGP 14 U/L (12-78); Albumin, Blood 2.6 g/dL (3.4-5.0); Albumin/Globulin Ratio 0.6 (0.8-1.8); Alk Phos 98 U/L (50-136); Anion Gap 7 mmol/L (6-16); Aspartate Aminotrans (AST/SGOT 16 U/L (12-37); Bilirubin, Total 0.7 mg/dL (0.1-1.0); Blood Urea Nitrogen 25 mg/dL (8-24); Bun/Creatinine Ratio 30.3 (12.0-20.0); CO2, Blood 29 mmol/L (21-32); Calcium, Blood 9.1 mg/dL (8.5-10.1); Chloride, Blood 99 mmol/L (98-108); Creatinine, Blood 0.82 mg/dL (0.40-1.00); Globulin, Blood 4.5 g/dL (2.2-4.0); Glomerular Filtration Rate >60 (60-); Glucose, Blood 156 mg/dL (70-99); Potassium, Blood 3.5 mmol/L (3.5-5.5); Sodium, Blood 135 mmol/L (136-145); Total Protein, Blood 7.1 g/dL (6.4-8.2)
[2019-04-21] MEDS ORDERED: Oxycodone-Apap1 EAC3 PO (14:24)
--- NOTE | 2019-04-21 18:30 | NUR ---
SHIFT SUMMARY- PT NEW ADMIT THIS PM. PT AXO X3. PT DENIES PAIN. DENIES SOB. RESP E/U ON RA. DENIES N/V. BLE ELEVATED ON PILLOWS. PT REPORTS UNABLE TO STAND AT THIS TIME. BEDREST. TURNS Q2H. NO OTHER SIGNIFICANT CHANGES THIS SHIFT.
[2019-04-22 05:54] LABS: Anion Gap 6 mmol/L (6-16); Blood Urea Nitrogen 25 mg/dL (8-24); Bun/Creatinine Ratio 32.1 (12.0-20.0); CO2, Blood 29 mmol/L (21-32); Calcium, Blood 8.8 mg/dL (8.5-10.1); Chloride, Blood 103 mmol/L (98-108); Creatinine, Blood 0.78 mg/dL (0.40-1.00); Glomerular Filtration Rate >60 (60-); Glucose, Blood 103 mg/dL (70-99); Potassium, Blood 3.8 mmol/L (3.5-5.5); Sodium, Blood 138 mmol/L (136-145)
[2019-04-22 06:10] LABS: BASOPHILS ABSOLUTE AUTO 0.05 K/mm3 (0.00-0.23); BASOPHILS PERCENT AUTO 0 % (0-2); EOSINOPHILS ABSOLUTE AUTO 0.24 K/mm3 (0.00-0.68); EOSINOPHILS PERCENT AUTO 1 % (0-6); Hematocrit 31.8 % (33.0-51.0); Hemoglobin 9.9 g/dL (11.5-16.0); IMMATURE GRAN ABSOLUTE AUTO 0.08 K/mm3 (0.00-0.10); IMMATURE GRAN PERCENT AUTO 0 % (0-1); LYMPHOCYTES ABSOLUTE AUTO 1.64 K/mm3 (0.84-5.20); LYMPHOCYTES PERCENT AUTO 9 % (21-46); MONOCYTES ABSOLUTE AUTO 1.26 K/mm3 (0.16-1.47); MONOCYTES PERCENT AUTO 7 % (4-13); Mean Corpuscular HGB 28.6 pg (26.0-34.0); Mean Corpuscular HGB Conc 31.1 g/dL (31.5-36.5); Mean Corpuscular Volume 92 fL (80-100); Mean Platelet Volume 10.3 fL (9.1-12.4); NEUTROPHILS ABSOLUTE AUTO 15.87 K/mm3 (1.96-9.15); NEUTROPHILS PERCENT AUTO 83 % (41-73); Platelet Count 184 K/mm3 (150-400); RDW Coefficient Variation 14.6 % (11.7-14.2); RDW Standard Deviation 49.4 fL (35.1-46.3); Red Blood Cell Count 3.46 M/mm3 (3.80-5.20); White Blood Cell Count 19.14 K/mm3 (4.00-11.30)
--- NOTE | 2019-04-22 06:40 | NUR ---
Rn summary: Patient is alert and oriented. Pt has wounds to top of right foot, posterior right calf and purple discoloration and many small skin tears to buttocks. Please see pictures. Pt has been medicated x1 for pain. Pt has not been able to sleep all night. Pt uses the bedpan, has too much pain to ambulate at this time. Pain increased over the last few days, and she had increased discoloration to both legs which is why she came to the hospital. Pt is mostly blind. She is able to use the call light. Vital signs are stable.
--- NOTE | 2019-04-22 16:18 | NUR ---
D/C INSTRUCTIONS PROVIDED AND EXPLAINED TO PT. PT D/C VIA WHEELCHAIR WITH [facility].
== END 2019-04-22 15:56 | disposition home or self-care (01) | DRG 603 ==
LOC: ER 12:58 → MEDS 15:27
PROVIDERS: Emergency Medicine; Nurse Practitioner Acute Care; ADMIT Internal Medicine
DX: L03.115 Cellulitis of right lower limb (principal); I73.9 Peripheral vascular disease, unspecified; I10 Essential (primary) hypertension; I25.10 Atherosclerotic heart disease of native coronary artery without angina pectoris; M19.90 Unspecified osteoarthritis, unspecified site; M79.7 Fibromyalgia; E78.5 Hyperlipidemia, unspecified; F32.9 Major depressive disorder, single episode, unspecified; Z79.02 Long term (current) use of antithrombotics/antiplatelets; Z79.82 Long term (current) use of aspirin; Z79.899 Other long term (current) drug therapy; Z95.1 Presence of aortocoronary bypass graft; I35.0 Nonrheumatic aortic (valve) stenosis; Z95.3 Presence of xenogenic heart valve; Z86.14 Personal history of Methicillin resistant Staphylococcus aureus infection
CPT/HCPCS: 36415; 80048; 80053; 83605; 85025; 87040; 96365; 96367; 96372-59; 99284-25; J0696; J1650; J3370; J7030; J7050

== ENCOUNTER → 2019-06-04 | Outpatient (CLI) | payer MEDICARE ==
[~2019-06-04] MED LIST changes: +Oxycodone-Apap1 EAC3 PO
[2019-06-04 12:41] LABS: BASOPHILS ABSOLUTE AUTO 0.04 K/mm3 (0.00-0.23); BASOPHILS PERCENT AUTO 0 % (0-2); EOSINOPHILS ABSOLUTE AUTO 0.31 K/mm3 (0.00-0.68); EOSINOPHILS PERCENT AUTO 2 % (0-6); Hematocrit 36.4 % (33.0-51.0); Hemoglobin 11.6 g/dL (11.5-16.0); IMMATURE GRAN ABSOLUTE AUTO 0.06 K/mm3 (0.00-0.10); IMMATURE GRAN PERCENT AUTO 0 % (0-1); LYMPHOCYTES PERCENT AUTO 21 % (21-46); MONOCYTES ABSOLUTE AUTO 1.07 K/mm3 (0.16-1.47); MONOCYTES PERCENT AUTO 7 % (4-13); Mean Corpuscular HGB 27.8 pg (26.0-34.0); Mean Corpuscular HGB Conc 31.9 g/dL (31.5-36.5); Mean Corpuscular Volume 87 fL (80-100); Mean Platelet Volume 10.2 fL (9.1-12.4); NEUTROPHILS ABSOLUTE AUTO 10.26 K/mm3 (1.96-9.15); NEUTROPHILS PERCENT AUTO 69 % (41-73); Platelet Count 234 K/mm3 (150-400); RDW Coefficient Variation 14.8 % (11.7-14.2); RDW Standard Deviation 47.9 fL (35.1-46.3); Red Blood Cell Count 4.18 M/mm3 (3.80-5.20); White Blood Cell Count 14.84 K/mm3 (4.00-11.30)
[2019-06-04 13:19] LABS: Alanine Aminotransfer (ALT/SGP 16 U/L (12-78); Albumin, Blood 3.3 g/dL (3.4-5.0); Albumin/Globulin Ratio 0.8 (0.8-1.8); Alk Phos 125 U/L (50-136); Anion Gap 11 mmol/L (6-16); Aspartate Aminotrans (AST/SGOT 19 U/L (12-37); Bilirubin, Total 0.5 mg/dL (0.1-1.0); Blood Urea Nitrogen 30 mg/dL (8-24); Bun/Creatinine Ratio 37.5 (12.0-20.0); CO2, Blood 27 mmol/L (21-32); Calcium, Blood 9.1 mg/dL (8.5-10.1); Chloride, Blood 103 mmol/L (98-108); Globulin, Blood 4.3 g/dL (2.2-4.0); Glomerular Filtration Rate >60 (60-); Glucose, Blood 94 mg/dL (70-99); Potassium, Blood 3.7 mmol/L (3.5-5.5); Sodium, Blood 141 mmol/L (136-145); Total Protein, Blood 7.6 g/dL (6.4-8.2)
== END | disposition home or self-care (01) ==
LOC: LAB SHORT 12:34 → LAB 12:34
DX: D64.9 Anemia, unspecified (principal)
CPT/HCPCS: 36415; 80053; 85025

== ENCOUNTER → 2019-07-02 | Outpatient (CLI) | payer MEDICARE | END | disposition home or self-care (01) | LOC: LAB 11:30 → LAB SHORT 11:30 | DX: L97.512 Non-pressure chronic ulcer of other part of right foot with fat layer exposed (principal) | CPT/HCPCS: 87070; 87075; 87205 ==

== ENCOUNTER 2019-09-09 10:34 | Emergency (ER) | payer MEDICARE ==
[~2019-09-09] VITALS: Ht 160 cm; Wt 59.0 kg
== END 2019-09-09 14:11 | disposition home or self-care (01) ==
LOC: ER 10:34
DX: S20.211A Contusion of right front wall of thorax, initial encounter (principal); S40.012A Contusion of left shoulder, initial encounter; S10.93XA Contusion of unspecified part of neck, initial encounter; I10 Essential (primary) hypertension; Z87.891 Personal history of nicotine dependence; Z79.899 Other long term (current) drug therapy; Z79.82 Long term (current) use of aspirin; Z79.02 Long term (current) use of antithrombotics/antiplatelets; W18.39XA Other fall on same level, initial encounter
CPT/HCPCS: 71111; 99284-25

== ENCOUNTER → 2019-10-29 | Outpatient (CLI) | payer MEDICARE ==
[2019-10-29 15:01] LABS: BASOPHILS ABSOLUTE AUTO 0.03 K/mm3 (0.00-0.23); BASOPHILS PERCENT AUTO 0 % (0-2); EOSINOPHILS PERCENT AUTO 1 % (0-6); Hematocrit 29.5 % (33.0-51.0); Hemoglobin 9.1 g/dL (11.5-16.0); IMMATURE GRAN ABSOLUTE AUTO 0.07 K/mm3 (0.00-0.10); IMMATURE GRAN PERCENT AUTO 1 % (0-1); LYMPHOCYTES ABSOLUTE AUTO 2.06 K/mm3 (0.84-5.20); LYMPHOCYTES PERCENT AUTO 15 % (21-46); MONOCYTES ABSOLUTE AUTO 0.94 K/mm3 (0.16-1.47); MONOCYTES PERCENT AUTO 7 % (4-13); Mean Corpuscular HGB 26.5 pg (26.0-34.0); Mean Corpuscular HGB Conc 30.8 g/dL (31.5-36.5); Mean Corpuscular Volume 86 fL (80-100); NEUTROPHILS PERCENT AUTO 77 % (41-73); Platelet Count 243 K/mm3 (150-400); RDW Coefficient Variation 15.2 % (11.7-14.2); RDW Standard Deviation 47.9 fL (35.1-46.3); Red Blood Cell Count 3.43 M/mm3 (3.80-5.20)
[2019-10-29 15:21] LABS: Alanine Aminotransfer (ALT/SGP 17 U/L (12-78); Albumin/Globulin Ratio 0.7 (0.8-1.8); Alk Phos 133 U/L (50-136); Anion Gap 4 mmol/L (6-16); Aspartate Aminotrans (AST/SGOT 17 U/L (12-37); Bilirubin, Total 0.4 mg/dL (0.1-1.0); Blood Urea Nitrogen 28 mg/dL (8-24); Bun/Creatinine Ratio 31.3 (12.0-20.0); CO2, Blood 30 mmol/L (21-32); Calcium, Blood 8.8 mg/dL (8.5-10.1); Chloride, Blood 107 mmol/L (98-108); Globulin, Blood 4.3 g/dL (2.2-4.0); Glomerular Filtration Rate >60 (60-); Glucose, Blood 117 mg/dL (70-99); Potassium, Blood 4.3 mmol/L (3.5-5.5); Sodium, Blood 141 mmol/L (136-145); Total Protein, Blood 7.3 g/dL (6.4-8.2)
== END | disposition home or self-care (01) ==
LOC: LAB SHORT 13:30 → LAB 13:30
DX: L97.502 Non-pressure chronic ulcer of other part of unspecified foot with fat layer exposed (principal); I10 Essential (primary) hypertension
CPT/HCPCS: 80053; 85025; 85651

== ENCOUNTER → 2019-11-03 | Outpatient (CLI) | payer MEDICARE ==
[2019-11-03 14:53] LABS: BASOPHILS ABSOLUTE AUTO 0.05 K/mm3 (0.00-0.23); BASOPHILS PERCENT AUTO 0 % (0-2); EOSINOPHILS PERCENT AUTO 3 % (0-6); Hematocrit 32.2 % (33.0-51.0); Hemoglobin 9.7 g/dL (11.5-16.0); IMMATURE GRAN ABSOLUTE AUTO 0.04 K/mm3 (0.00-0.10); IMMATURE GRAN PERCENT AUTO 0 % (0-1); LYMPHOCYTES ABSOLUTE AUTO 2.44 K/mm3 (0.84-5.20); LYMPHOCYTES PERCENT AUTO 19 % (21-46); MONOCYTES PERCENT AUTO 6 % (4-13); Mean Corpuscular HGB 25.4 pg (26.0-34.0); Mean Corpuscular HGB Conc 30.1 g/dL (31.5-36.5); Mean Corpuscular Volume 84 fL (80-100); Mean Platelet Volume 9.7 fL (9.1-12.4); NEUTROPHILS ABSOLUTE AUTO 9.07 K/mm3 (1.96-9.15); NEUTROPHILS PERCENT AUTO 71 % (41-73); Platelet Count 290 K/mm3 (150-400); RDW Coefficient Variation 14.9 % (11.7-14.2); RDW Standard Deviation 45.7 fL (35.1-46.3); Red Blood Cell Count 3.82 M/mm3 (3.80-5.20)
[2019-11-03 15:11] LABS: International Normalized Ratio 0.97; Prothrombin Time Results 10.4 Sec (9.7-11.5)
[2019-11-03 15:30] LABS: Anion Gap 8 mmol/L (6-16); Blood Urea Nitrogen 23 mg/dL (8-24); CO2, Blood 28 mmol/L (21-32); Calcium, Blood 9.3 mg/dL (8.5-10.1); Chloride, Blood 103 mmol/L (98-108); Creatinine, Blood 0.92 mg/dL (0.40-1.00); Glomerular Filtration Rate >60 (60-); Glucose, Blood 122 mg/dL (70-99); Potassium, Blood 3.9 mmol/L (3.5-5.5); Sodium, Blood 139 mmol/L (136-145)
== END | disposition home or self-care (01) ==
LOC: LAB 13:24 → LAB SHORT 13:24
PROVIDERS: Radiology Diagnostic Radiology
DX: E78.2 Mixed hyperlipidemia (principal); I50.9 Heart failure, unspecified; I77.9 Disorder of arteries and arterioles, unspecified
CPT/HCPCS: 80048; 85025; 85610

== ENCOUNTER → 2020-02-28 | Outpatient (CLI) | payer MEDICARE | END | disposition home or self-care (01) | LOC: LAB SHORT 11:00 → LAB 11:00 | DX: L97.512 Non-pressure chronic ulcer of other part of right foot with fat layer exposed (principal) | CPT/HCPCS: 87070; 87205 ==

== ENCOUNTER → 2020-04-10 | Outpatient (CLI) | payer MEDICARE | END | disposition home or self-care (01) | LOC: LAB SHORT 15:12 → LAB 15:12 | DX: L97.212 Non-pressure chronic ulcer of right calf with fat layer exposed (principal) | CPT/HCPCS: 87070; 87075; 87077; 87185; 87186; 87205 ==

== ENCOUNTER 2020-04-27 10:43 | Inpatient (IN) | payer MEDICARE ==
[~2020-04-27] VITALS: Ht 160 cm; Wt 57.0 kg
[2020-04-27 11:20] LABS: BASOPHILS ABSOLUTE AUTO 0.05 K/mm3 (0.00-0.23); BASOPHILS PERCENT AUTO 0 % (0-2); EOSINOPHILS ABSOLUTE AUTO 0.29 K/mm3 (0.00-0.68); EOSINOPHILS PERCENT AUTO 2 % (0-6); Hemoglobin 10.9 g/dL (11.5-16.0); IMMATURE GRAN ABSOLUTE AUTO 0.06 K/mm3 (0.00-0.10); IMMATURE GRAN PERCENT AUTO 1 % (0-1); LYMPHOCYTES ABSOLUTE AUTO 2.61 K/mm3 (0.84-5.20); LYMPHOCYTES PERCENT AUTO 20 % (21-46); MONOCYTES ABSOLUTE AUTO 0.88 K/mm3 (0.16-1.47); MONOCYTES PERCENT AUTO 7 % (4-13); Mean Corpuscular HGB 25.5 pg (26.0-34.0); Mean Corpuscular HGB Conc 30.3 g/dL (31.5-36.5); Mean Corpuscular Volume 84 fL (80-100); Mean Platelet Volume 9.1 fL (9.1-12.4); NEUTROPHILS ABSOLUTE AUTO 9.13 K/mm3 (1.96-9.15); NEUTROPHILS PERCENT AUTO 70 % (41-73); Platelet Count 251 K/mm3 (150-400); RDW Coefficient Variation 17.8 % (11.7-14.2); RDW Standard Deviation 54.5 fL (35.1-46.3); Red Blood Cell Count 4.28 M/mm3 (3.80-5.20); White Blood Cell Count 13.02 K/mm3 (4.00-11.30)
[2020-04-27 11:43] LABS: Alanine Aminotransfer (ALT/SGP 8 U/L (12-78); Albumin, Blood 3.1 g/dL (3.4-5.0); Albumin/Globulin Ratio 0.6 (0.8-1.8); Alk Phos 120 U/L (50-136); Anion Gap 7 mmol/L (6-16); Aspartate Aminotrans (AST/SGOT 13 U/L (12-37); Bilirubin, Total 0.4 mg/dL (0.1-1.0); Blood Urea Nitrogen 19 mg/dL (8-24); Bun/Creatinine Ratio 22.3 (12.0-20.0); CO2, Blood 29 mmol/L (21-32); Chloride, Blood 104 mmol/L (98-108); Creatinine, Blood 0.85 mg/dL (0.40-1.00); Globulin, Blood 4.8 g/dL (2.2-4.0); Glomerular Filtration Rate >60 (60-); Glucose, Blood 114 mg/dL (70-99); Potassium, Blood 3.9 mmol/L (3.5-5.5); Sodium, Blood 140 mmol/L (136-145); Total Protein, Blood 7.9 g/dL (6.4-8.2)
--- NOTE | 2020-04-27 18:29 | NUR ---
PT ADMITTED. PT ADMITTED TO 359. PT IN STABLE CONDITION WITH VSS. FLUIDS STARTED, VANCO RUNNING. DINNER TRAY ORDERED. PT ORIENTED TO ROOM. CALL & PHONE IN REACH. PURSE AT BEDSIDE. WOUND CARE COMPLETED & PICS TAKEN. WILL CONTINUE TO MONITOR UNTIL TURNOVER IS COMPLETE.
--- NOTE | 2020-04-28 03:52 | NUR ---
SHIFT SUMMARY PT ADMITTED ON PREVIOUS SHIFT WITH DM AND PRESSURE SORES OF RIGHT FOOT AND BACK OF RIGHT CALF - SEE CORRESPONDING PICTURES TAKEN IN CHART. DRSSINGS CHANGED ON DAY SHIFT, PT HAS BEEN VOICING PAIN IN AREA AND HAS RECEIVED PERCOCET ABOUT EVERY 4 HRS FOR SAID PAIN - SEE MAR FOR DETAILS. IVF INFUSING ORDERED. ISOLATION PRECAUTIONS FOR MRSA CONTINUE. CALL LIGHT IN REACH
[2020-04-28 04:52] LABS: BASOPHILS ABSOLUTE AUTO 0.04 K/mm3 (0.00-0.23); BASOPHILS PERCENT AUTO 0 % (0-2); EOSINOPHILS ABSOLUTE AUTO 0.36 K/mm3 (0.00-0.68); EOSINOPHILS PERCENT AUTO 4 % (0-6); Hematocrit 28.1 % (33.0-51.0); Hemoglobin 8.4 g/dL (11.5-16.0); IMMATURE GRAN ABSOLUTE AUTO 0.05 K/mm3 (0.00-0.10); IMMATURE GRAN PERCENT AUTO 1 % (0-1); LYMPHOCYTES ABSOLUTE AUTO 1.15 K/mm3 (0.84-5.20); LYMPHOCYTES PERCENT AUTO 11 % (21-46); MONOCYTES ABSOLUTE AUTO 0.76 K/mm3 (0.16-1.47); MONOCYTES PERCENT AUTO 7 % (4-13); Mean Corpuscular HGB 25.4 pg (26.0-34.0); Mean Corpuscular HGB Conc 29.9 g/dL (31.5-36.5); Mean Corpuscular Volume 85 fL (80-100); Mean Platelet Volume 9.3 fL (9.1-12.4); NEUTROPHILS ABSOLUTE AUTO 8.03 K/mm3 (1.96-9.15); NEUTROPHILS PERCENT AUTO 77 % (41-73); Platelet Count 196 K/mm3 (150-400); RDW Coefficient Variation 17.8 % (11.7-14.2); RDW Standard Deviation 55.9 fL (35.1-46.3); Red Blood Cell Count 3.31 M/mm3 (3.80-5.20); White Blood Cell Count 10.39 K/mm3 (4.00-11.30)
[2020-04-28 05:28] LABS: Alanine Aminotransfer (ALT/SGP 7 U/L (12-78); Albumin, Blood 2.2 g/dL (3.4-5.0); Albumin/Globulin Ratio 0.6 (0.8-1.8); Alk Phos 92 U/L (50-136); Anion Gap 5 mmol/L (6-16); Aspartate Aminotrans (AST/SGOT 10 U/L (12-37); Bilirubin, Total 0.3 mg/dL (0.1-1.0); Blood Urea Nitrogen 19 mg/dL (8-24); Bun/Creatinine Ratio 22.1 (12.0-20.0); CO2, Blood 28 mmol/L (21-32); Calcium, Blood 8.2 mg/dL (8.5-10.1); Chloride, Blood 107 mmol/L (98-108); Creatinine, Blood 0.86 mg/dL (0.40-1.00); Globulin, Blood 3.5 g/dL (2.2-4.0); Glomerular Filtration Rate >60 (60-); Glucose, Blood 116 mg/dL (70-99); Potassium, Blood 4.1 mmol/L (3.5-5.5); Sodium, Blood 140 mmol/L (136-145)
[2020-04-28 05:29] LABS: Total Protein, Blood 5.7 g/dL (6.4-8.2)
--- NOTE | 2020-04-28 07:20 | NUR ---
ASSUMED CARE: PT RESTING QUIETLY. NO ACUTE NEEDS OR CONCERNS AT THIS TIME.
--- NOTE | 2020-04-28 11:00 | NUR ---
DR DUVAL AT BEDSIDE. DRESSING REMOVED SO DR CAN SEE WOUND BED. DRESSING REPLACED
--- NOTE | 2020-04-28 17:31 | NUR ---
SHIFT SUMMARY: PT REPOSITIONED Q2, MEDICATED FOR PAIN X2 THIS SHIFT. PLAN IS ABX OVER WEEKEND UNTIL PODIATRY CAN SEE PT NEXT WEEK. DRESSING CHANGED THIS SHIFT. NO FURTHER NEEDS OR CONCERNS AT THIS TIME.
--- NOTE | 2020-04-29 04:31 | NUR ---
SHIFT SUMMARY ADMITTED FOR OSTEOPENIA OF RT FOOT. FULL CODE. SHE HAS ULCERS ON RT LEG AND TOP OF FOOT. ULCER ON COCCYX. SHE IS ONLY CONFUSED WHEN SHE FIRST WAKES UP. SHE IS RECEIVING ANTIBIOTICS OVER THE WEEKEND, PODIATRY CONSULT PERHAPS FRIDAY. SHE RECEIVES HOME HEALTH AT HOME TO HELP WITH HER DRESSING CHANGES. SHE STATES SHE DOES NOT GET UP OUT OF CHAIR OR BED MUCH. CONTACT PRECAUTIONS FOR MRSA IN WOUNDS. PERCOCET IS SCHEDULED Q 4 HRS, SHE STATES SHE TAKES PAIN MEDICATION AT HOME.
[2020-04-29 07:05] LABS: BASOPHILS ABSOLUTE AUTO 0.05 K/mm3 (0.00-0.23); BASOPHILS PERCENT AUTO 1 % (0-2); EOSINOPHILS ABSOLUTE AUTO 0.67 K/mm3 (0.00-0.68); EOSINOPHILS PERCENT AUTO 6 % (0-6); Hematocrit 34.8 % (33.0-51.0); Hemoglobin 10.4 g/dL (11.5-16.0); IMMATURE GRAN ABSOLUTE AUTO 0.05 K/mm3 (0.00-0.10); IMMATURE GRAN PERCENT AUTO 1 % (0-1); LYMPHOCYTES PERCENT AUTO 14 % (21-46); MONOCYTES ABSOLUTE AUTO 0.79 K/mm3 (0.16-1.47); MONOCYTES PERCENT AUTO 8 % (4-13); Mean Corpuscular HGB 25.5 pg (26.0-34.0); Mean Corpuscular HGB Conc 29.9 g/dL (31.5-36.5); Mean Corpuscular Volume 85 fL (80-100); Mean Platelet Volume 9.8 fL (9.1-12.4); NEUTROPHILS ABSOLUTE AUTO 7.54 K/mm3 (1.96-9.15); NEUTROPHILS PERCENT AUTO 71 % (41-73); Platelet Count 236 K/mm3 (150-400); Red Blood Cell Count 4.08 M/mm3 (3.80-5.20)
[2020-04-29 07:15] LABS: Albumin, Blood 2.5 g/dL (3.4-5.0); Anion Gap 4 mmol/L (6-16); Blood Urea Nitrogen 14 mg/dL (8-24); Bun/Creatinine Ratio 14.7 (12.0-20.0); CO2, Blood 31 mmol/L (21-32); Calcium, Blood 8.6 mg/dL (8.5-10.1); Chloride, Blood 104 mmol/L (98-108); Creatinine, Blood 0.95 mg/dL (0.40-1.00); Glomerular Filtration Rate 59 (60-); Glucose, Blood 92 mg/dL (70-99); Phosphorus, Blood 3.3 mg/dL (2.5-4.9); Potassium, Blood 4.2 mmol/L (3.5-5.5); Sodium, Blood 139 mmol/L (136-145)
--- NOTE | 2020-04-29 18:36 | NUR ---
shift summary patient is pleasant, alert and oriented. she denies shortness of breath. she has been changed multiple times today. she notes that she is feeling well but not quite ready to go home. sounds like the patient is expecting to go to rehab post discharge to get stronger. she does have wounds on her r leg and these are chronic.
--- NOTE | 2020-04-30 03:49 | NUR ---
SHIFT SUMMARY: 89 Y/O FEMALE RESTED COMFORTABLY ALL SHIFT; PT C/O RLE PAIN 8/10 WITH PERCOCET 5/325 PO X 1 GIVEN WITH RELIEF FELT; PTS RLE KERLIX WRAP DRY AND INTACT; ALERT AND ORIENTED X 4; PT INCONTINENT URINE WITH ATTENDS DIAPERS CHANGED BY STAFF; BED ALARM APPLIED WITH BED ALARM APPLIED, CALL LIGHT AT SIDE.
--- NOTE | 2020-04-30 10:25 | NUR ---
patient was seen by Dr. Calle this am and he undressed the wounds, cleansed and redressed the wounds today. this has been a dressng change and a consult. he placed a consult for dr. gottlieb which cannot be called until tomorrow as he does not have arrive to the hospital on weekends. will attempt to find a consult line number for chery. patient is comfortable at this time.
--- NOTE | 2020-04-30 16:10 | NUR ---
SHIFT SUMMARY PATIENT IS PLEASANT, ALERT AND ORIENTED. SHE HAS BEEN ONE PERSON ASSIST TO THE BEDSIDE COMMODE AFTER WORKING WITH PHYSICAL THERAPY BUT SHE IS STILL MILDLY INCONTINENT AND HAS BEEN FOR A LONG TIME. THE PATIENT IS COOPERATIVE AND CALLS APPROPRIATELY. WE HAVE KEPT HER PAIN UNDER CONTROL. SHE WAS SEEN BY DR. TREVIZO TODAY AND HAS A CONSULT FOR DR. ALEMAN TOMORROW. THIS HAS ALREADY BEEN CALLED. SHE HAD HER WOUND UNWRAPPED, CLEANSED, AND REWRAPPED BY DR. TREVIZO TODAY DURING HER CONSULT. HE PLACED CALCIUM ALGANATE BETWEEN HER TOES, SHE HAS KERLEX AND AN ABD PAD ALONG HER ULCERATIONS. DR. TREVIZO WOULD LIKE DR. 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 SHE IS IN A MUCH BETTER MOOD THAN SHE WAS YESTERDAY. HER PAIN IS UNDER CONTROL AND SHE FEELS THAT SHE IS MORE UPDATED ON HER SITUATION TODAY THAN SHE HAS BEEN SINCE SHE WAS ADMITTED.
[2020-04-30 17:39] LABS: Vancomycin, Trough 15.7 ug/mL (5.0-10.0)
--- NOTE | 2020-05-01 06:34 | NUR ---
SHIFT SUMMARY AOX4. DENIES N/V OR DYSPNEA. NOTICED SPO2 @88% LAST NIGHT, DENIES USING O2 BEFORE & SPO2 HAS BEEN TRENDING 88-92% ON RA. HAD PT TAKE SOME DEEP BREATHS & SPO2 INCREASED TO 92% ON RA. DENIES ASTHMA OR COPD. REPORTS HAVING OCCASIONAL CONGESTED/PHLEM TYPE COUGH. CRACKLES HEARD IN BASES OF LUNGS. HAS STAGE 1 PRESSURE SORE ON COCCYX, SKIN INTACT & VERY BRUISED, DRESSING CHANGED. DRESSING ON RLE IS C/D/I DURING ASSESSMENT, CAT AND DOG BATHER CHANGED DRESSING YESTERDAY DURING DAY SHIFT. REPORTS 8/10 PAIN IN RLE, MEDICATED 1X W/PERCOCET. CAP REFILL <3, UNABLE TO ASSESS PEDAL PULSE IN RLE. HEEL PROTECTORS APPLIED. CALL LIGHT IN REACH.
--- NOTE | 2020-05-01 17:10 | NUR ---
PATIENT IS ALERT AND ORIENTED. SHE REFUSED PT TODAY BUT PARTICIPATED WITH OT. SHE IS EAGER TO HAVE DR. ALEMAN CONSULT. RLE DRESSING HAS BEEN CHANGED TODAY. SHE GOT UP TO THE CHAIR THIS MORNING FOR BREAKFAST. WILL CONTINUE TO MONITOR
--- NOTE | 2020-05-02 01:47 | NUR ---
SHIFT REVIEW 0130 05/02 PT HAS BEEN PLEASENT AND A/O THE WHOLE SHIFT. INC VOID ONCE WITH AN ATTENDS AND LINEN CHANGE. PT SET UP FOR ORAL CARE. CALLING APPROPRIATELY
--- NOTE | 2020-05-02 07:49 | NUR ---
SHIFT SUMMARY NO ACUTE CHANGES THIS SHIFT. AOX4. VSS, EXCEPT SPO2 @ 88% ON RA INITIALLY, ASKED PT TO TAKE A FEW DEEP BREATHS & SPO2 INCREASED TO 92% ON RA. PT DENIES N/V OR DYSPNEA. REPORTS 7-05/29 PAIN IN RLE, MEDICATED 2X W/PERCOCET. DRESSING ON RLE WOUND IS C/D/I. PT PLANNED TO GO FOR POSSIBLE REVASCULARIZATION LATER THIS AFTERNOON, IS TO BE NPO AFTER BREAKFAST PER YESTERDAY DAY SHIFT RN REPORT. CALL LIGHT IN REACH.
--- NOTE | 2020-05-02 17:06 | NUR ---
SHIFT SUMMARY- PT IS A/O, PLESANT AND COOPERATIVE, SHE IS EATING AND DRINKING WELL. THERE WAS A POSSIBLITY OF HER GOING TO HAVE REVASCULARZATION OF THE LEFT LEG TODAY, BUT THE PROCEDURE WAS POSTPONED UNTIL TOMORROW. SHE WILL BE NPO AFTER MIDNIGNT. SHE IS A SB ASSIST TO THE BEDSIDE CAMMODE. SHE IS VOIDING WELL. MEDICATED FOR PAIN PER MAR
[2020-05-02 18:33] LABS: Creatinine, Blood 0.88 mg/dL (0.40-1.00)
[2020-05-02 18:35] LABS: Vancomycin, Trough 20.1 ug/mL (5.0-10.0)
--- NOTE | 2020-05-03 02:41 | NUR ---
PATIENT VERY AGITATED AT START OF SHIFT SHE THOUGHT SHE WOULD'VE HAD HER PROCEDURE TODAY. PATIENT VERY FRUSTRATED TONIGHT WONDERING ABOUT WHETHER SHE SHOULD HAVE REVASCULARIZATION TOMORROW. VERY CONCRETE IN HER THINKING. SHE STATES SHE HAS ALREADY HAD THE PROCEDURE TWICE ON HER RIGHT LEG. AT AROUND 0200, WHEN THIS RN WENT IN TO CHECK ON HER, PATIENT STATED SHE DIDN'T THINK SHE WANTED TO HAVE THE SURGERY. THEN SHE SAID SHE WANTED WATER TO "SIP ON". i EXPLAINED THAT IF SHE DRANK MORE THAN JUST A SIP, AND CHANGED HER MIND, SHE MAY HAVE TO WAIT UNTIL A LATER DATE TO HAVE THE SURGERY. pATIENT AGREED THAT SHE WOULD TO SPEAK WITH THE SURGEON IN AM. SMALL CUP OF WATER GIVEN TO PATIENT FOR COMFORT. WILL CONTINUE CLOSE MONITORING.
[2020-05-03 05:27] LABS: Vancomycin, Random 16.8 ug/mL
--- NOTE | 2020-05-03 08:35 | NUR ---
PT REFUSING SURG/INTERVENTION TO ME. EXPLAINED IF WOUNDS NOT HEALING, MAY EVENTUALLY BECOME WORSE, POSS GANGRENOUS, COULD POSS LOOSE LEG, EXPLAINED DR GOAL WAS TO REVASCULARIZE AND GET GOOD FLOW TO ASSIST IN HEALING. SHE REFUSING INTERVENTIONS. WANTS TO EAT AND DRINK. EXPLAINED WILL CONTACT DR. CALLED DR CAMPOS. EXPLAINED ABOVE, ALSO THAT SHE PRESENTS MORE CONFUSED OVER LAST FEW DAYS PER HAND MICA PLATE LAYER. SHE TO COME SEE PT.
--- NOTE | 2020-05-03 09:32 | NUR ---
DR CAMPOS STATES SAW PT. CONTINUE WITH REVASC. CALL DR ALEMAN TO ADVISE. FIND OUT WHEN TO DO
--- NOTE | 2020-05-03 13:00 | NUR ---
PAL CARE NOTE/CASE CONFERENCE: Spoke with Steel Turner who had seen pt this am after report of pt very anxious and refusing scheduled intervention to revascularize LE. Steel Turner reports that she was able to calm the pt and that she had agreed to proceed with the procedure. suggested that I wait until tomorrow to attempt visit with pt. She will f/u with pt again later today/santos. Plan to make contact and visit if pt is agreeable tomorrow.
--- NOTE | 2020-05-03 14:06 | NUR ---
Pt. is lying in bed and talking with her nurse pt. reports to be doing well encouraged pt. and offered prayers .
--- NOTE | 2020-05-03 17:56 | NUR ---
PT PLEASANT THIS AFT. CALMED DOWN SINCE THIS AM. WAS READY TO LEAVE. I TALKED TO HER AND DR CAMPOS TALKED TO HER. GOT DR ALEMAN TO SEE HER. PT STATES FEELS BETTER NOW. PT HAS BEEN SEEN AT LEAST TWICE BY SPIRITUAL CARE. DR ALEMAN LOOKED AT FOOT TTHIS AM. STATES NOT BAD EXPECTED. WILL SET PROCEDURE FOR TOMORROW AM. NO NEW CONCERNS AT THIS TIME. BED IN LOW POSITION, CALL LITE IN REACH, CALLS APPROP
--- NOTE | 2020-05-03 18:13 | NUR ---
Per RN request, I visited Patti who was hestitant about her upcoming proceedure. Through affirmation and gentle christian counselor, she agreed to proceed. Prayer and assurance of excellent care was beneficial. We had an easy rapport, and I will continue to follow as case-load permits.
--- NOTE | 2020-05-04 04:26 | NUR ---
SUMMARY PT ONLY COMPLAINT IS R HIP DISCOMFORT. PT TX PER EMAR. PT HAS SLEPT OFF AND ON. PT HAS BEEN CHANGED AND REPOSITIONED. PT HAS BEEN NPO SINCE MIDNIGHT. PT CURRENTLY SLEEPING IN NO DISTRESS. CALL LIGHT IN REACH AND BED ALARM ON.
--- NOTE | 2020-05-04 08:45 | NUR ---
PT PLEASANT COOP A/O THIS AM. HAS ACCEPTED PROCEDURE AND NPO WELL TODAY. H/R REG, NO MURMER NOTED. 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 NO TELE. LUNGS CLEAR, RESP EASY, UNLABORED. ON R.A. BT X4 LAST BM YEST PER PT. VOIDS INCONT. IN ATTENDS. CDI AT THIS TIME. BOTTOM/COCCYX PRESENTS IMPROVED FROM PIC. VERY SMALL OPEN SPOTS NOW. IS COVERED WITH DRY MEPILEX. DID NOT OBSERVE FOOT/CALF WOUND. IS PRESENTLY WRAPPED AND DR TREVIZO IS MANAGING. HUGO IS CDI. PENDING REVASCULARIZATION BY DR ALEMAN THIS AM. PT IS NPO. BED IN LOW POSITION, CALL LITE IN REACH, CALLS APPROP.
--- NOTE | 2020-05-04 15:35 | NUR ---
DAY SURG HERE FOR PT PROCEDURE
--- NOTE | 2020-05-04 16:24 | NUR ---
REP;ORT CALLED TO [facility] FOR ICU TRANSFER FOR RECOVERY FROM REVASCULARIZATION.
--- NOTE | 2020-05-04 17:45 | NUR ---
PT TO ICU 15 FROM [facility]. S/P REVASCULARIZATION OF R LEG. PT IS DROWSY BUT WAKES EASILY AND ANSWERS QUESTIONS APPROPRIATELY. HAS R FEMORAL ACCESS SITE THAT HAS CLEAR OCCLUSIVE DRESSING INTACT. NO SIGN OF HEMATOMA. PT'S R FOOT HAS SEVERE WOUNDS TO TOP OF FOOT. HAS GINO WRAP AND GAUZE DRESSING. SURROUNDING SKIN IS THICK AND SCALING. HAS WOUND TO KIRK WELL. BUTTOCKS IS DEEP PURPLE THAT BLANCHES. WAS ONLY ABLE TO FIND R POPLITEAL PULSE AND R PT PULSE WITH DOPPLER. SKIN IS SO THICK IT IS VERY DIFFICULT TO ASSESS PULSES. ON 4L NC. EDUCATED ABOUT PRECAUTIONS FOR KEEPING LEG STRAIGHT AND HEAD DOWN ON PILLOW.
--- NOTE | 2020-05-04 18:19 | NUR ---
Routine spiritual care note: Provided prayer and visit before proceedure for Patti. She was calm and said she was happy she was having "this" done. Met with her post-op for encouragement. Ethanol Maintenance Mechanic services will remain available.
--- NOTE | 2020-05-04 19:00 | NUR ---
ASSUMED CARE NOTE: ASSUMED CARE OF PT AT 1900, RECEVIED REPORT FROM [facility]. PT IS A/OX3, HOWEVER, IS FORGETFUL AT TIMES. FREQUENTLY ASKED THE SAME QUESTIONS. PT IS ON 2L OF O2 VIA NC, SPO2 AT 95% PT DENIES SOB. PT IN SR WITH PVC'S HR IN THE 50-60'S. ACTIVE BT HEARD IN ALL FOUR QUADRANTS, ATTENDS IN PLACE. PT IS IN SUPINE POSITION POST VASCULAR INTERVENTION. PT C/O 9/10 PAIN TO RIGHT LEG. RLE IS PALE, COOL TO THE TOUCH, WOUND NOTED TO RIGHT FOOT. RLE WOUND DRESSING IN PLACE. POPLITEAL PULSE FOUND WITH DOPPLER, NO PEDAL PULSE COUNLD BE FOUND. RIGHT FEMORAL CATH INSERTION SITE IS FREE FROM HEMATOMA, NO ACTIVE BLEEDING NOTED, DRESSING IS C/D/I. BED AT LOWEST LEVEL, CALL LIGHT WITHIN REACH. WILL CONTINUE TO MONITOR PT T/O SHIFT.
[2020-05-04 20:11] LABS: Vancomycin, Trough 13.2 ug/mL (5.0-10.0)
--- NOTE | 2020-05-04 22:00 | NUR ---
UPDATE: NO CHANGES TO SITE. PT SITTING UP IN BED EATING DINNER. CALL LIGHT WITHIN REACH
--- NOTE | 2020-05-04 23:51 | NUR ---
UPDATE: WOUND CARE PROVIDED, CLEANED WITH WOUND SNOWMOBILE MECHANIC AND DRESSINGS CHANGED.
--- NOTE | 2020-05-05 02:30 | NUR ---
UPDATE: PT C/O 05/29 PAIN, PAIN MEDS GIVEN ORDERED. PT B/P RISING, LOPRESSOR 2100 DOSE GIVEN.
--- NOTE | 2020-05-05 04:38 | NUR ---
UPDATE NOTE: DAUGHTER PABLO CALLED. UNABLE TO GIVE DAUGHTER INFORMATION AT 0300, PT SLEEPING AND UNABLE TO GIVE CONSENT. BRENDA SHAH WAS TOLD THAT WHEN PT WAKES UP THIS NURSE WOULD ASK PERMISSION AND CALL HER BACK SOON POSSIBLE.
--- NOTE | 2020-05-05 06:15 | NUR ---
SHIFT SUMMARY: NO SIGNIFICANT CHANGES SINCE LAST ASSESSMENT. PT IS IN SR WITH BBB. HR IN THE 60'S, PT IS HAVING PROLONGED QT. PT ON 2L OF VIA NC WHILE SLEEPING SPO2 ABOVE 95% PT HAS BEEN C/O PAIN T/O SHIFT MEDICATED FOR PAIN PER EMAR. RLE POPITEAL AND TIBAL PULSE CAN BE FOUND WITH DOPPLER. WOUNDS WERE CLEANED AND DRESSING WHERE CHANGED THIS SHIFT. PT HAS BEEN REPOSITIONED Q2HRS. CALLED AND TALKED TO DAUGHTER PABLO, WHO IS NEXT OF KIN, UPDATED HER ON PT'S STATUS. DAUGHTER STATES THAT HER MOTHER LIVES ALONE AND IS IN DENIAL OF HEALTH STATUS. STATES THAT PATIENT IS FORGETFUL AT TIMES BUT IS USUALLY " WITH IT AND SHARP" PT'S VITALS HAVE BEEN STABLE, AFEBRILE. BED AT LOWEST LEVEL, WILL CONTINUE TO MONITOR PT UNTIL REPORT IS GIVEN TO ONCOMING SHIFT.
--- NOTE | 2020-05-05 06:24 | NUR ---
NO CHANGES TO RIGHT FEMORAL SITE, NO HEMATOMA, ACTIVE BLEEDING NOTED. SITE C/D/I
--- NOTE | 2020-05-05 09:30 | NUR ---
PT RESTING IN BED. C/O PAIN IN RLE. S/P REVASCULARIZATION OF RLE. PT HAS WOUNDS TO FOOT AND LE. ABLE TO FIND POSTERIOR TIBIAL PULSE ON R FOOT WITH DOPPLER. UNABLE TO FIND PEDAL PULSE DUE TO THICKENING AND SCALING OF SKIN WITH LARGE WOUND TO FOOT. CAP REFILL IS BETTER AND COLOR OF TOES IS BETTER TODAY. R GROIN ACCESS SITE IS STABLE WITH DRESSING C/D/I. PT IS A/O TO PERSON, PLACE, SURROUNDINGS, AND EVENT.
--- NOTE | 2020-05-05 12:44 | NUR ---
PT WILL BE TRANSFERED TO MEDICAL FLOOR. REPORT GIVEN TO GLORIA ARCE. PHYSICAL THERAPY HERE AND ASSISTING PT TO W/C FOR TRANSFER. NO SIGN OF DISTRESS.
--- NOTE | 2020-05-05 17:26 | NUR ---
SHIFT SUMMARY PATIENT IS PLEASANT, ALERT AND ORIENTED. NO ACUTE CONCERNS AT THIS TIME. SHE WAS REVASCULARIZED YESTERDAY AND PULSES WERE TO DOPPLER AT HER R POSTERIOR TIBIAL. SHE DOES HAVE PAIN AND NEW FEELING IN THAT R LEG BUT IS PLEASANT AND DOES TRY TO HELP ROLL FOR CHANGES. SHE WORKED WIHT OCCUPATIONAL THERAPY WHO PLACED THE PATIENT A 2PA DUE TO UNSTEADY GAIT. PATIENT WANTS TO GO HOME.
--- NOTE | 2020-05-06 05:56 | NUR ---
SHIFT SUMMARY PT IS AN 89 Y/O FEMALE, ADMITTED FOR RLE OSTEOMYELITIS. SHE IS A&O X 4, ON BEDREST, WITH CHRONIC WOUNDS ON THE RLE. PT IS POST REVASCULARIZATION YESTERDAY. WOUND DRESSING C/D/I, NO DRAINAGE NOTED. PT WAS MEDICATED ONCE FOR PAIN WITH PRN HYDROCODONE. NO COMPLAINTS OF NAUSEA OR SOB. PT IS ON 2L OF O2 VIA NC FOR COMFORT, AND SATTING 95-96%. ALL OTHER VITALS STABLE. NO ACUTE CHANGES IN PT CONDITION NOTED DURING THE NIGHT. WILL CONTINUE TO MONITOR AND TREAT PER EMAR UNTIL HAND OFF TO DAY SHIFT RN.
[2020-05-06 08:21] LABS: Vancomycin, Trough 16.5 ug/mL (5.0-10.0)
--- NOTE | 2020-05-06 17:29 | NUR ---
JUST SPOKE WITH DR. TREVIZO, THE PATIENT IS CLEARED TO GO HOME FROM PODIATRY STANDPOINT LONG SHE FOLLOWS UP WITH THE WOUND CLINIC WEEKLY FOR WOUND DRESSING CHANGES.
--- NOTE | 2020-05-06 17:34 | NUR ---
SHIFT SUMMARY JUST SPOKE WITH DR. TREVIZO, NITESHEN TIS ALERT AND ORIENTED. HER WOUND WAS RE-DRESSED TODAY. SHE IS CLEARED FROM PODIATRY STANDPOINT LONG SHE FOLLOWS UP IN THE WOUND CLINIC. SHE DENIES SHORTNESS OF BREATH OR CHEST PAIN. SHE IS CURRENLTY ON 2L O2 VIA NC. EXPECTED DISCHARGE TOMORROW.
--- NOTE | 2020-05-07 05:00 | NUR ---
SHIFT SUMMARY PT IS AN 89 Y/O FEMALE, ADMITTED FOR RLE OSTEOMYELITIS. SHE IS A&O X3, CURRENTLY ON BEDREST. PT IS 2 DAYS POST RLE REVASCULARIZATION. PT HAS CHRONIC WOUNDS ON THE RLE, WOUND DRESSING CHANGE DONE YESTERDAY DURING DAY SHIFT PER REPORT. 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 NO COMPLAINTS OF ACUTE PAIN, NAUSEA OR SOB. VITAL SIGNS STABLE. NO ACUTE CHANGES IN PT CONDITION NOTED. WILL CONTINUE TO MONITOR AND TREAT PER EMAR UNTIL HAND OFF TO DAY SHIFT RN.
--- NOTE | 2020-05-07 08:18 | NUR ---
MET WITH PATIENT AND HER PRIMARY CAREGIVER TIARA. TIARA STATES THAT TRISTAN NEEDS TO GO TO SNF FOR PT/OT REHAB PATIENT MUST BE ABLE TO STAND AND TRANSFER TO THE BEDSIDE COMMODE. REVIEWED OPTIONS WITH PATIENT AND CAREGIVER FOR SNF. TRISTAN VERBALIZED UNDERSTANDING AND IS AGREEABLE TO DC TO SNF. WILL CONTACT [facility] TO SEE ABOUT POTENTIAL DC TO SNF TODAY.
--- NOTE | 2020-05-07 13:29 | NUR ---
PER PATIENT IS STABLE FOR DC TO SNF SHE IS NOW AGREEABLE. PATIENT HAS BEEN REVIEWED AND ACCEPTED FOR TRANSFER TO [facility]. REQUESTED FACILITY DISCHARGE ORDERS. WILL CONT TO MONITOR
[2020-05-07] MEDS ORDERED: AMOCLA875 PO (14:37)
[2020-05-07] MEDS ORDERED: ACET325 PO (14:37)
[2020-05-07] MEDS ORDERED: PROBIOTIC PO (14:39)
--- NOTE | 2020-05-07 14:52 | NUR ---
FACILITY DISCHARGE PACKET FAXED TO [facility] AND PLACED IN CHART AT BEDSIDE. [facility] WILL TRANSPORT PATIENT VIA WHEELCHAIR AT 1530. PATIENT NOTIFIED AND AGREEABLE TO PLAN. HER CAREGIVER TIARA ALSO WAS NOTIFIED. WILL CONT TO MONITOR.
--- NOTE | 2020-05-07 15:48 | NUR ---
PATIENT DISCHARGE TO SNF- . REPORT CALLED TO MARYANN. IV'S REMOVED AND PATIENT TRANSPORTE BY [facility]. PATIENT STABLE AT TIME OF DISCHARGE.
== END 2020-05-07 15:47 | DRG 516 ==
LOC: ER 10:43 → ICUW 17:34 → MEDS 17:34 → ICUW 05-04 15:32 → MEDS 05-05 13:20
PROVIDERS: Internal Medicine; Nurse Practitioner Acute Care; Pharmacist; Physician Assistant; ADMIT Internal Medicine
PROC: 047K3ZZ Dilation of Right Femoral Artery, Percutaneous Approach (ICD-10-PCS; principal; 2020-05-04)
PROC: B41F1ZZ Fluoroscopy of Right Lower Extremity Arteries using Low Osmolar Contrast (ICD-10-PCS; 2020-05-04)
PROC: 04CP3ZZ Extirpation of Matter from Right Anterior Tibial Artery, Percutaneous Approach (ICD-10-PCS; 2020-05-04)
PROC: 047P3ZZ Dilation of Right Anterior Tibial Artery, Percutaneous Approach (ICD-10-PCS; 2020-05-04)
DX: M86.171 Other acute osteomyelitis, right ankle and foot (principal); L03.115 Cellulitis of right lower limb; I77.9 Disorder of arteries and arterioles, unspecified; L08.89 Other specified local infections of the skin and subcutaneous tissue; I73.9 Peripheral vascular disease, unspecified; I10 Essential (primary) hypertension; I25.10 Atherosclerotic heart disease of native coronary artery without angina pectoris; M79.7 Fibromyalgia; F41.8 Other specified anxiety disorders; Z95.1 Presence of aortocoronary bypass graft; L89.150 Pressure ulcer of sacral region, unstageable; I35.0 Nonrheumatic aortic (valve) stenosis; E78.5 Hyperlipidemia, unspecified; Z95.3 Presence of xenogenic heart valve; Z79.82 Long term (current) use of aspirin; Z79.01 Long term (current) use of anticoagulants; Z87.891 Personal history of nicotine dependence; L89.302 Pressure ulcer of unspecified buttock, stage 2; R40.0 Somnolence; G62.9 Polyneuropathy, unspecified
CPT/HCPCS: 36415; 37229; 73620; 73701; 75710; 75774; 80053; 80069; 80202; 82565; 83735; 84145; 85025; 85651; 86140; 87040; 96365-59; 97110; 97162; 97166; 97530; 97535; 99152; 99153; 99285-25; A9270; A9270-GY; C1724; C1725; C1769; C1887; C1894; J0696; J1644; J1650; J2250; J3010; J3370; J7030; J7040; J7050; Q9967

== ENCOUNTER 2020-07-19 16:20 | Emergency (ER) | payer MEDICARE | END 2020-07-19 22:42 | disposition home or self-care (01) | LOC: ER 16:20 | DX: L30.9 Dermatitis, unspecified (principal); L89.519 Pressure ulcer of right ankle, unspecified stage; L89.329 Pressure ulcer of left buttock, unspecified stage; L89.319 Pressure ulcer of right buttock, unspecified stage; E78.5 Hyperlipidemia, unspecified; I11.0 Hypertensive heart disease with heart failure; I50.9 Heart failure, unspecified; I25.810 Atherosclerosis of coronary artery bypass graft(s) without angina pectoris; Z95.1 Presence of aortocoronary bypass graft; Z88.2 Allergy status to sulfonamides; Z79.899 Other long term (current) drug therapy; Z79.02 Long term (current) use of antithrombotics/antiplatelets ==

== ENCOUNTER → 2020-09-04 | Outpatient (CLI) | payer MEDICARE ==
[~2020-09-04] MED LIST changes: +AMOCLA875 PO; +PROBIOTIC PO
== END | disposition home or self-care (01) ==
LOC: LAB 16:01 → LAB SHORT 16:01
DX: L03.115 Cellulitis of right lower limb (principal); L97.512 Non-pressure chronic ulcer of other part of right foot with fat layer exposed
CPT/HCPCS: 87070; 87075; 87205

== ENCOUNTER → 2020-09-13 | Outpatient (CLI) | payer MEDICARE ==
[~2020-09-13] MED LIST changes: -Oxycodone-Apap1 EAC3 PO
== END | disposition home or self-care (01) ==
LOC: LAB SHORT 11:44 → LAB 11:44
DX: L03.115 Cellulitis of right lower limb (principal); L97.512 Non-pressure chronic ulcer of other part of right foot with fat layer exposed
CPT/HCPCS: 87070; 87077; 87186; 87205

== ENCOUNTER → 2020-10-06 | Outpatient (CLI) | payer MEDICARE ==
[~2020-10-06] MED LIST changes: +AZIT250 PO; +Colace100 MG PO; +VISBIOME 112.51 EACH PO
[2020-10-06 15:08] LABS: BASOPHILS ABSOLUTE AUTO 0.06 K/mm3 (0.00-0.23); BASOPHILS PERCENT AUTO 0 % (0-2); EOSINOPHILS ABSOLUTE AUTO 0.18 K/mm3 (0.00-0.68); EOSINOPHILS PERCENT AUTO 1 % (0-6); Hematocrit 32.4 % (33.0-51.0); Hemoglobin 9.8 g/dL (11.5-16.0); IMMATURE GRAN ABSOLUTE AUTO 0.06 K/mm3 (0.00-0.10); IMMATURE GRAN PERCENT AUTO 0 % (0-1); LYMPHOCYTES ABSOLUTE AUTO 2.33 K/mm3 (0.84-5.20); LYMPHOCYTES PERCENT AUTO 16 % (21-46); MONOCYTES PERCENT AUTO 6 % (4-13); Mean Corpuscular HGB 25.3 pg (26.0-34.0); Mean Corpuscular HGB Conc 30.2 g/dL (31.5-36.5); Mean Corpuscular Volume 84 fL (80-100); Mean Platelet Volume 9.8 fL (9.1-12.4); NEUTROPHILS ABSOLUTE AUTO 11.36 K/mm3 (1.96-9.15); NEUTROPHILS PERCENT AUTO 76 % (41-73); Platelet Count 278 K/mm3 (150-400); RDW Standard Deviation 45.5 fL (35.1-46.3); Red Blood Cell Count 3.87 M/mm3 (3.80-5.20); White Blood Cell Count 14.89 K/mm3 (4.00-11.30)
[2020-10-06 15:33] LABS: Alanine Aminotransfer (ALT/SGP 20 U/L (12-78); Albumin, Blood 2.9 g/dL (3.4-5.0); Albumin/Globulin Ratio 0.6 (0.8-1.8); Alk Phos 119 U/L (50-136); Anion Gap 4 mmol/L (6-16); Aspartate Aminotrans (AST/SGOT 16 U/L (12-37); Bilirubin, Total 0.3 mg/dL (0.1-1.0); Blood Urea Nitrogen 29 mg/dL (8-24); Bun/Creatinine Ratio 35.9 (12.0-20.0); CHOL/HDL RATIO 2.2; CO2, Blood 29 mmol/L (21-32); Calcium, Blood 9.3 mg/dL (8.5-10.1); Chloride, Blood 107 mmol/L (98-108); Cholesterol 117 mg/dL (50-200); Creatinine, Blood 0.81 mg/dL (0.40-1.00); Globulin, Blood 4.6 g/dL (2.2-4.0); Glomerular Filtration Rate >60 (60-); Glucose, Blood 113 mg/dL (70-99); HDL Cholesterol 54 mg/dL (>39); LDL/HDL RATIO 0.8; Low Density Lipoprotein Chol 41 mg/dL (0-110); Potassium, Blood 4.2 mmol/L (3.5-5.5); Sodium, Blood 140 mmol/L (136-145); Total Protein, Blood 7.5 g/dL (6.4-8.2); Triglycerides 112 mg/dL (30-160); Very Low Density Lipoprot Chol 22 mg/dL (6-32)
== END | disposition home or self-care (01) ==
LOC: LAB SHORT 14:03 → LAB 14:03
PROVIDERS: Nurse Practitioner Family
DX: E78.5 Hyperlipidemia, unspecified (principal); I10 Essential (primary) hypertension
CPT/HCPCS: 80053; 80061; 84443; 85025; 87070; 87075; 87077; 87186; 87205

== ENCOUNTER 2020-11-22 06:14 | Day surgery (SDC) | payer MEDICARE ==
[~2020-11-22] VITALS: Ht 160 cm; Wt 56.0 kg
[~2020-11-22 06:14] MED LIST changes: -AZIT250 PO; -Colace100 MG PO; -VISBIOME 112.51 EACH PO
--- NOTE | 2020-11-22 12:49 | NUR ---
[facility] ARRIVES TO DRIVE PT BACK TO [facility] [place]. REPORT CALLED TO BLAYNE PICKERING. PT PROVIDED WITH DISCHARGE INFORMATION IN FOLDER, PERSONAL BELONGINGS SENT IN BAG. PT DENIES PAIN. LEFT ARTERIAL GROIN SITE SOFT NON TENDER WITH NO ACTIVE BLEEDING, OOZING, OR PAIN. ENCOURAGED TO FOLLOW UP SCHEDULED, PT TAKEN OUT TO [facility] IN PRIVATE W/C FROM [facility]. NO ACUTE DISTRESS NOTED. IV REMOVED FROM [facility] WITH CATHETER INTACT, PRESSURE DRESSING APPLIED.
== END 2020-11-22 12:50 | disposition home or self-care (01) ==
LOC: MHTC 06:14
DX: I70.238 Atherosclerosis of native arteries of right leg with ulceration of other part of lower leg (principal); L97.819 Non-pressure chronic ulcer of other part of right lower leg with unspecified severity; Z95.1 Presence of aortocoronary bypass graft; I70.291 Other atherosclerosis of native arteries of extremities, right leg; L98.499 Non-pressure chronic ulcer of skin of other sites with unspecified severity; L60.2 Onychogryphosis; E78.5 Hyperlipidemia, unspecified; I10 Essential (primary) hypertension; Z87.891 Personal history of nicotine dependence; Z88.1 Allergy status to other antibiotic agents; Z88.2 Allergy status to sulfonamides; Z79.82 Long term (current) use of aspirin; Z79.899 Other long term (current) drug therapy
CPT/HCPCS: 37228; 75625; 75716; 75774; 99152; 99153; C1725; C1760; C1769; C1887; C1894; J1644; J2250; J3010; J7030; J7050; Q9967

== ENCOUNTER 2020-12-03 19:22 | Inpatient (IN) | payer MEDICARE ==
[~2020-12-03] VITALS: Ht 160 cm; Wt 57.3 kg
[2020-12-03 19:49] LABS: BASOPHILS ABSOLUTE AUTO 0.05 K/mm3 (0.00-0.23); BASOPHILS PERCENT AUTO 0 % (0-2); EOSINOPHILS ABSOLUTE AUTO 0.17 K/mm3 (0.00-0.68); EOSINOPHILS PERCENT AUTO 1 % (0-6); Hemoglobin 9.7 g/dL (11.5-16.0); IMMATURE GRAN ABSOLUTE AUTO 0.05 K/mm3 (0.00-0.10); IMMATURE GRAN PERCENT AUTO 0 % (0-1); LYMPHOCYTES ABSOLUTE AUTO 1.62 K/mm3 (0.84-5.20); LYMPHOCYTES PERCENT AUTO 12 % (21-46); MONOCYTES ABSOLUTE AUTO 0.84 K/mm3 (0.16-1.47); MONOCYTES PERCENT AUTO 6 % (4-13); Mean Corpuscular HGB 25.5 pg (26.0-34.0); Mean Corpuscular HGB Conc 30.3 g/dL (31.5-36.5); Mean Corpuscular Volume 84 fL (80-100); Mean Platelet Volume 9.9 fL (9.1-12.4); NEUTROPHILS ABSOLUTE AUTO 10.82 K/mm3 (1.96-9.15); NEUTROPHILS PERCENT AUTO 80 % (41-73); Platelet Count 217 K/mm3 (150-400); RDW Standard Deviation 55.2 fL (35.1-46.3); White Blood Cell Count 13.55 K/mm3 (4.00-11.30)
[2020-12-03 20:12] LABS: Alanine Aminotransfer (ALT/SGP 21 U/L (12-78); Albumin, Blood 3.1 g/dL (3.4-5.0); Albumin/Globulin Ratio 0.7 (0.8-1.8); Alk Phos 153 U/L (50-136); Anion Gap 4 mmol/L (6-16); Aspartate Aminotrans (AST/SGOT 20 U/L (12-37); Bilirubin, Total 0.2 mg/dL (0.1-1.0); Blood Urea Nitrogen 21 mg/dL (8-24); Bun/Creatinine Ratio 21.7 (12.0-20.0); CO2, Blood 25 mmol/L (21-32); Calcium, Blood 8.5 mg/dL (8.5-10.1); Chloride, Blood 109 mmol/L (98-108); Creatinine, Blood 0.97 mg/dL (0.40-1.00); Globulin, Blood 4.2 g/dL (2.2-4.0); Glomerular Filtration Rate 58 (60-); Glucose, Blood 154 mg/dL (70-99); Potassium, Blood 4.8 mmol/L (3.5-5.5); Sodium, Blood 138 mmol/L (136-145); Total Protein, Blood 7.3 g/dL (6.4-8.2); Troponin I <0.015 ng/mL (0.000-0.040)
[2020-12-04 04:37] LABS: Bun/Creatinine Ratio 21.1 (12.0-20.0); Calcium, Blood 8.8 mg/dL (8.5-10.1); Creatinine, Blood 1.14 mg/dL (0.40-1.00); Potassium, Blood 4.2 mmol/L (3.5-5.5)
--- NOTE | 2020-12-04 07:52 | NUR ---
SHIFT SUMMARY PATIENT TO ROOM FROM ED VIA STRETCHER AND SLID TO BED. PATIENT IS ALERT AND ORIENTED BUT VERY FORGETFUL AND WOULD KEEP ASKING THE SAME QUESTION REPEATEDLY. PATIENT STATED SHE FEELS WEAK, AND IS A 2 PERSON ASSIST WITH Q2 HOUR TURNING AND BRIEF CHANGES. COCCYX AREA IS RED AND BEGINNING TO BREAKDOWN, PICTURE IN CHART. 02 SATS >90% ON 3L VIA NC. VSS, NO ACUTE CHANGES. CALL LIGHT IN REACH, BED ALARM ON.
--- NOTE | 2020-12-04 11:13 | NUR ---
Echocardiogram completed.
--- NOTE | 2020-12-04 18:20 | NUR ---
SHIFT SUMMARY: NO ACUTE CHANGES T/OUT SHIFT. PT CONTINUES A&O, FORGETFUL AT TIMES WITH REPETITIVE QUESTIONS, USES CALL LIGHT APPROPRIATELY. PT MAINTAINES O2 SATS >92% ON RA OR 1 L/MIN WHILE AWAKE, SR W/BBB ON MONITOR. RT FOOT CONTINUES WRAPPED IN KERLEX WITH ABD NONSTICK PADS, SMALL AMOUNT OF YELLOW DISCHARGE. DIURESIS CONTINUES VIA IV PUSH, PT TOLERATING WELL. WILL CONTINUE TO MONITOR AND TREAT ACCORDINGLY UNTIL CHANGE OF SHIFT.
--- NOTE | 2020-12-05 04:32 | NUR ---
SHIFT SUMMARY PATIENT IS ALERT AND ORIENTED, BECOMES CONFUSED WHEN WOKEN UP AND REPEATS SELF FREQUENTLY. 1 PERSON ASSIST WITH Q2 HOUR TURNS AND BRIEF CHANGES NEEDED. PATIENT CALLS APPROPRIATELY. CHANGED BANDAGES ON RIGHT FOOT WOUND, PICTURES IN CHART. PATIENTS HR WOULD DROP TO THE 40s FOR BRIEF MOMENTS THROUGH THE NIGHT BUT THEN REMAIN @ 80-90s OTHERWISE. 02 SATS >90% ON RA. CALL LIGHT IN REACH.
[2020-12-05 04:44] LABS: Bun/Creatinine Ratio 21.5 (12.0-20.0); Calcium, Blood 8.6 mg/dL (8.5-10.1); Creatinine, Blood 1.3 mg/dL (0.40-1.00); Potassium, Blood 4.3 mmol/L (3.5-5.5)
--- NOTE | 2020-12-05 17:57 | NUR ---
SHIFT SUMMARY: PT CONTINUES A&O, FORGETFUL AT TIMES. PT ABLE TO MAINTAIN O2 SATS >92% ON ROOM AIR, RESP EVEN AND UNLABORED. PT FOUND TO HAVE SHORT PERIODS OF HEART RATE IN 40'S, PT ASYMPTOMATIC, HOSPITALIST AND FRUIT VENDOR CONSULTED, METOPROLOL DOSE BEING DECREASED FOR NEXT DOSE. PT RECEPTIVE TO PT/OT TODAY, ABLE TO USE WALKER TO GET UP TO BSC AND CHAIR. DRESSINGS TO RLE REMOVED, WOUNDS CLEANED, REDRESSED, PT TOLERATED WELL. PT ON 2ND DAY OF IV CEPHALEXIN, NO ADVERSE REACTIONS NOTED DURING OR AFTER TRANSFUSIONS. AT THIS TIME, PT RESTING IN BED WITH MEAL TRAY. WILL CONTINUE TO MONITOR AND TREAT ACCORDINGLY UNTIL CHANGE OF SHIFT.
--- NOTE | 2020-12-06 03:58 | NUR ---
FLOOR SANDING MACHINE OPERATOR SUMMARY PT MAINTAINED >92 O2 SATURATIONS ON RM AIR. LEGS WERE ELEVATED THROUGHOUT THE SHIFT AND PT DID REQUEST PAIN MEDICATION FOR LEG PAIN AT THE START OF THE SHIFT. THE PT SLEPT FOR MOST OF THE NIGHT W HEA OF BED ELEVATED. HR CONTINUED TO DROP INTO 40'S BUT THEN BOUNCE BACK INTO THE 80-90'S, 2100 LOPRESSOR HELD DUE TO HR IN THE 40'S. PT WAS ASYMPTOMATIC WHILE BRADYCARDIC, WCTM.
[2020-12-06 06:45] LABS: Bun/Creatinine Ratio 27.1 (12.0-20.0); Calcium, Blood 8.5 mg/dL (8.5-10.1); Creatinine, Blood 1.44 mg/dL (0.40-1.00); Potassium, Blood 4.1 mmol/L (3.5-5.5)
[2020-12-06] MEDS ORDERED: AZIT250 PO (13:39)
[2020-12-06] MEDS ORDERED: Colace100 MG PO (13:39)
[2020-12-06] MEDS ORDERED: POTCHL20ER PO (13:42)
[2020-12-06] MEDS ORDERED: VISBIOME 112.51 EACH PO (13:43)
[2020-12-06] MEDS ORDERED: AMOCLA875 PO (13:44)
[2020-12-06] MEDS ORDERED: FURO40 PO (13:44)
--- NOTE | 2020-12-06 17:02 | NUR ---
PT DISCHARGED TO HOME TODAY WITH HOME HEALTH ORDERS. NEW MEDICATIONS AND DISCHAGRE INSTRUCTIONS DISCLOSED WITH THE PT, PT VERBALIZED UNDERSTANDING, PT HAS A CARGIVER AT HOME THAT WAS CONTACTED TO BE ABLE TO HELP PT ONCE FINALLY HOME. TRANSPORTATION SET UP THROUGH [facility]. PT VITALS STABLE FOR THE SHIFT, DENIES CHEST PAIN OR PRESSURE, WAS GIVEN NORCO X1 FOR HIP/BACK PAIN, PT WAS ABLE TO WORK WITH PT/OT, ABLE TO STAND TRANSFER TO CHAIR VIA WALKER. DRESSING ON RLE WAS CLEANED AND REDRESSED. NO OTHER ISSUES ENCOUNTERED BEFORE DISCHARGE, [facility]
== END 2020-12-06 15:53 | disposition home health service (06) | DRG 291 ==
LOC: ER 19:22 → PCU 22:42
PROVIDERS: Emergency Medicine; Family Medicine; Internal Medicine; ADMIT Internal Medicine
DX: I11.0 Hypertensive heart disease with heart failure (principal); J96.01 Acute respiratory failure with hypoxia; J18.9 Pneumonia, unspecified organism; I50.23 Acute on chronic systolic (congestive) heart failure; F32.9 Major depressive disorder, single episode, unspecified; E78.5 Hyperlipidemia, unspecified; M79.7 Fibromyalgia; I73.9 Peripheral vascular disease, unspecified; I44.7 Left bundle-branch block, unspecified; I87.2 Venous insufficiency (chronic) (peripheral); M19.90 Unspecified osteoarthritis, unspecified site; Z95.2 Presence of prosthetic heart valve; Z87.891 Personal history of nicotine dependence; Z79.02 Long term (current) use of antithrombotics/antiplatelets
CPT/HCPCS: 36415; 71045; 80048; 80053; 83735; 83880; 84145; 84484; 85025; 93005; 93010; 93306; 96374; 97110; 97162; 97166; 97530; 97535; 99285-25; A9270; J0456; J0696; J1650; J1940; J7050

== ENCOUNTER → 2020-12-15 | Outpatient (CLI) | payer MEDICARE ==
[~2020-12-15] MED LIST changes: +AZIT250 PO; +Colace100 MG PO; +VISBIOME 112.51 EACH PO
[2020-12-15 14:58] LABS: BASOPHILS ABSOLUTE AUTO 0.07 K/mm3 (0.00-0.23); BASOPHILS PERCENT AUTO 1 % (0-2); EOSINOPHILS ABSOLUTE AUTO 0.48 K/mm3 (0.00-0.68); EOSINOPHILS PERCENT AUTO 5 % (0-6); Hematocrit 34.5 % (33.0-51.0); Hemoglobin 10.4 g/dL (11.5-16.0); IMMATURE GRAN ABSOLUTE AUTO 0.04 K/mm3 (0.00-0.10); IMMATURE GRAN PERCENT AUTO 0 % (0-1); LYMPHOCYTES ABSOLUTE AUTO 2.92 K/mm3 (0.84-5.20); LYMPHOCYTES PERCENT AUTO 28 % (21-46); MONOCYTES ABSOLUTE AUTO 0.65 K/mm3 (0.16-1.47); MONOCYTES PERCENT AUTO 6 % (4-13); Mean Corpuscular HGB 25.5 pg (26.0-34.0); Mean Corpuscular HGB Conc 30.1 g/dL (31.5-36.5); Mean Corpuscular Volume 85 fL (80-100); Mean Platelet Volume 9.6 fL (9.1-12.4); NEUTROPHILS ABSOLUTE AUTO 6.17 K/mm3 (1.96-9.15); NEUTROPHILS PERCENT AUTO 60 % (41-73); Platelet Count 232 K/mm3 (150-400); RDW Coefficient Variation 17.8 % (11.7-14.2); RDW Standard Deviation 54.7 fL (35.1-46.3); Red Blood Cell Count 4.08 M/mm3 (3.80-5.20); White Blood Cell Count 10.33 K/mm3 (4.00-11.30)
[2020-12-15 15:13] LABS: Bun/Creatinine Ratio 34.3 (12.0-20.0); Calcium, Blood 8.7 mg/dL (8.5-10.1); Creatinine, Blood 0.96 mg/dL (0.40-1.00); Potassium, Blood 4.1 mmol/L (3.5-5.5)
== END | disposition home or self-care (01) ==
LOC: LAB SHORT 11:55 → LAB 11:55
PROVIDERS: Nurse Practitioner Family
DX: I10 Essential (primary) hypertension (principal); L97.509 Non-pressure chronic ulcer of other part of unspecified foot with unspecified severity
CPT/HCPCS: 80048; 85025

== ENCOUNTER 2021-03-12 13:41 | Emergency (ER) | payer MEDICARE ==
[~2021-03-12] VITALS: Ht 160 cm; Wt 63.5 kg
== END 2021-03-12 18:52 | disposition home or self-care (01) ==
LOC: ER 13:41
DX: L97.519 Non-pressure chronic ulcer of other part of right foot with unspecified severity (principal); Z23 Encounter for immunization; Z79.02 Long term (current) use of antithrombotics/antiplatelets; Z79.899 Other long term (current) drug therapy
CPT/HCPCS: 87070; 87075; 87077; 87147; 87186; 87205; 90471; 90714; 93922; 99284-25

== ENCOUNTER → 2021-04-12 | Outpatient (CLI) | payer MEDICARE ==
[2021-04-12 17:58] LABS: BASOPHILS ABSOLUTE AUTO 0.09 K/mm3 (0.00-0.23); BASOPHILS PERCENT AUTO 1 % (0-2); EOSINOPHILS ABSOLUTE AUTO 0.38 K/mm3 (0.00-0.68); EOSINOPHILS PERCENT AUTO 4 % (0-6); Hematocrit 38.8 % (33.0-51.0); Hemoglobin 12.4 g/dL (11.5-16.0); IMMATURE GRAN ABSOLUTE AUTO 0.04 K/mm3 (0.00-0.10); IMMATURE GRAN PERCENT AUTO 0 % (0-1); LYMPHOCYTES ABSOLUTE AUTO 3.88 K/mm3 (0.84-5.20); LYMPHOCYTES PERCENT AUTO 35 % (21-46); MONOCYTES ABSOLUTE AUTO 0.97 K/mm3 (0.16-1.47); MONOCYTES PERCENT AUTO 9 % (4-13); Mean Corpuscular HGB 27.4 pg (26.0-34.0); Mean Corpuscular Volume 86 fL (80-100); Mean Platelet Volume 11.4 fL (9.1-12.4); NEUTROPHILS PERCENT AUTO 51 % (41-73); Platelet Count 181 K/mm3 (150-400); RDW Coefficient Variation 16.9 % (11.7-14.2); RDW Standard Deviation 53.4 fL (35.1-46.3); Red Blood Cell Count 4.52 M/mm3 (3.80-5.20); White Blood Cell Count 10.96 K/mm3 (4.00-11.30)
[2021-04-12 17:59] LABS: Albumin, Blood 3.2 g/dL (3.4-5.0); Bun/Creatinine Ratio 38.5 (12.0-20.0); Calcium, Blood 8.9 mg/dL (8.5-10.1); Creatinine, Blood 1.04 mg/dL (0.40-1.00); Potassium, Blood 3.5 mmol/L (3.5-5.5)
== END | disposition home or self-care (01) ==
LOC: LAB 10:40 → LAB SHORT 10:40
PROVIDERS: Nurse Practitioner Family
DX: I10 Essential (primary) hypertension (principal)
CPT/HCPCS: 80048; 82040; 85025

== ENCOUNTER 2021-05-18 01:34 | Day surgery (SDC) | payer MEDICARE ==
[2021-05-18] MEDS ORDERED: Aspir 8181 MG PO (13:43)
[2021-05-18] MEDS ORDERED: FURO20 PO (13:45)
[2021-05-18] MEDS ORDERED: GABA100 PO (13:46)
[2021-05-18] MEDS ORDERED: POTA10T PO (13:47)
[2021-05-18] MEDS ORDERED: METO50ER PO (13:48)
[2021-05-18] MEDS ORDERED: PERCOCET 10-321 EAC7 PO (13:51)
[2021-05-18] MEDS ORDERED: Percocet 5-3251 EACH PO (13:51)
[2021-05-18] MEDS ORDERED: TRIA15CR3 TOP (13:53)
== END 2021-05-18 11:35 | disposition home or self-care (01) ==
LOC: ATC 01:34
DX: L97.519 Non-pressure chronic ulcer of other part of right foot with unspecified severity (principal); E78.5 Hyperlipidemia, unspecified; I10 Essential (primary) hypertension; Z87.891 Personal history of nicotine dependence; Z88.2 Allergy status to sulfonamides; Z79.82 Long term (current) use of aspirin; Z79.02 Long term (current) use of antithrombotics/antiplatelets
CPT/HCPCS: 36569; C1751